=== PATIENT | female | born 1990 | race Caucasian/White ===

== ENCOUNTER 2018-06-27 21:26 | Inpatient (IN) | payer OTHER ==
[2018-06-27] MEDS ORDERED: SODIUM CHLORIDE 0.9% 1,000 ML IV STA (22:34)
[2018-06-27 22:46] LABS: Basophils % (A) 0 %; Eosinophils # (A) 0.1 k/uL (0-0.7); Eosinophils % (A) 1 %; HCT 38.7 % (34.0-46.0); HGB 12.1 gm/dL (11.4-16.0); Lymphocytes # (A) 1.9 k/uL (1.0-4.8); Lymphocytes % (A) 14 %; MCH 20.5 pg (25.0-35.0); MCHC 31.4 g/dL (31.0-37.0); MCV 65.4 fL (80.0-100.0); Mean Platelet Volume 7.2; Microcytosis Marked; Monocytes # (A) 0.7 k/uL (0-1.0); Monocytes % (A) 5 %; Neutrophils # (A) 10.3 k/uL (1.3-7.7); Neutrophils % (A) 79 %; Platelet Count 270 k/uL (150-450); RBC 5.91 m/uL (3.80-5.40); RDW 14.5 % (11.5-15.5); WBC 13.1 k/uL (3.8-10.6)
[2018-06-27 22:54] LABS: Appearance,Urine Cloudy (Clear); Bilirubin,Urine Negative (Negative); Blood,Urine Small (Negative); Color,Urine Yellow; Glucose,Urine (UA) Negative (Negative); Ketones,Urine Negative (Negative); Leukocyte Esterase,Urine Moderate (Negative); Mucus,Urine Occasional /hpf; Nitrite,Urine Negative (Negative); PH, Urine 6.5 (5.0-8.0); Protein,Urine 1+ (Negative); RBC,Urine 4 /hpf (0-5); Specific Gravity,Urine 1.027 (1.001-1.035); Squamous Epithelial Cell,Urine 13 /hpf (0-4); WBC,Urine 16 /hpf (0-5)
[2018-06-27 22:55] LABS: ALT 35 U/L (9-52); AST 67 U/L (14-36); Albumin 4.6 g/dL (3.5-5.0); Alkaline Phosphatase 101 U/L (38-126); Anion Gap 9 mmol/L; Blood Urea Nitrogen 8 mg/dL (7-17); Calcium 9.9 mg/dL (8.4-10.2); Carbon Dioxide 25 mmol/L (22-30); Chloride 107 mmol/L (98-107); Glucose 103 mg/dL (74-99); Lipase 444 U/L (23-300); Sodium 141 mmol/L (137-145); Total Bilirubin 1.3 mg/dL (0.2-1.3); Total Protein 7.7 g/dL (6.3-8.2)
--- NOTE | 2018-06-27 23:24 | CT ---
EXAM: CT Abdomen and Pelvis With Intravenous Contrast CLINICAL HISTORY: ITS.REASON CT Reason: abdominal pain TECHNIQUE: Axial computed tomography images of the abdomen and pelvis with intravenous contrast. This CT exam was performed using one or more of the following dose reduction techniques: automated exposure control, adjustment of the mA and/or kV according to patient size, and/or use of iterative reconstruction technique. COMPARISON: No relevant prior studies available. FINDINGS: Lung bases: Unremarkable. No mass. No consolidation. ABDOMEN: Liver: Unremarkable. No mass. Gallbladder and bile ducts: Cholelithiasis. 5 mm stone at the distal CBD. CBD is dilated, up to 1 cm. Pancreas: Unremarkable. No mass. No ductal dilation. Spleen: Unremarkable. No splenomegaly. Adrenals: Unremarkable. No mass. Kidneys and ureters: Unremarkable. No solid mass. No hydronephrosis. Stomach and bowel: No obstruction. No mucosal thickening. PELVIS: Appendix: No findings to suggest acute appendicitis. Bladder: Unremarkable. No mass. Reproductive: Unremarkable as visualized. ABDOMEN and PELVIS: Intraperitoneal space: Unremarkable. No free air. No significant fluid collection. Bones/joints: No acute fracture. No dislocation. Soft tissues: Unremarkable. Vasculature: No abdominal aortic aneurysm. Lymph nodes: Unremarkable. No enlarged lymph nodes. IMPRESSION: Cholelithiasis. 5 mm stone at the distal CBD. CBD is dilated, up to 1 cm.
--- NOTE | 2018-06-27 23:43 | ED ---
General Adult HPI - General Source: patient, RN notes reviewed, old records reviewed Mode of arrival: ambulatory Limitations: no limitations <Jv Jo - Last Filed: 06/28/18 03:39> <Cordelia Neumann - Last Filed: 06/28/18 06:06> - General Chief complaint: Abdominal Pain Stated complaint: Abd pain Time Seen by Provider: 06/27/18 22:15 - History of Present Illness Initial comments: 27-year-old female patient with no pertinent past medical history presents to ED for approximately 2 months of waxing and waning epigastric left upper quadrant abdominal pain. Patient has been evaluated by her primary care provider for this and has been placed on Protonix. Patient also has GI consult at the end of month. Patient reports that earlier today she began having epigastric pain, decided to present to the emergency department for evaluation. Patient denies any other complaints at this time. Pt states that she is not . Systemic: Pt denies fatigue, myalgia, fever/chills, rash. Pt denies weakness, night sweats, weight loss. Neuro: Pt denies headache, visual disturbances, syncope or pre-syncope. HEENT: Pt denies ocular discharge or irritation, otalgia, rhinorrhea, pharyngitis or notable lymphadenopathy. Cardiopulmonary: Pt denies chest pain, SOB, heart palpitations, dyspnea on exertion. Abdominal/GI: Pt denies abdominal pain, n/v/d. : Pt denies dysuria, burning w/ urination, frequency/urgency. Denies new onset urinary or bowel incontinence. MSK: Pt denies myalgia, loss of strength or function in extremities. Neuro: Pt denies new onset weakness, paresthesias. (Jv Jo) - Related Data Home Medications Medication Instructions Recorded Confirmed Xru-Dabm-Btimt Acid 1 tab PO DAILY 02/07/15 02/13/15 [-U Capsule (formulary)] Allergies Allergy/AdvReac Type Severity Reaction Status Date / Time amoxicillin AdvReac Rash/Hives Verified 06/27/18 21:58 Review of Systems ROS Other: All systems not noted in ROS Statement are negative. <Jv Jo - Last Filed: 06/28/18 03:39> ROS Other: All systems not noted in ROS Statement are negative. <Cordelia Neumann - Last Filed: 06/28/18 06:06> ROS Statement: Those systems with pertinent positive or pertinent negative responses have been documented in the HPI. Past Medical History Additional Past Medical History / Comment(s): kidney stones History of Any Multi-Drug Resistant Organisms: None Reported Past Surgical History: Adenoidectomy, Tonsillectomy Past Psychological History: No Psychological Hx Reported Smoking Status: Never smoker Past Alcohol Use History: Occasional Past Drug Use History: None Reported <Jv Jo - Last Filed: 06/28/18 03:39> General Exam Limitations: no limitations <Jv Jo - Last Filed: 06/28/18 03:39> - General Exam Comments Initial Comments: Constitutional: NAD, AOX3, Pt has pleasant affect. HEENT: NC/AT, trachea midline, neck supple, no lymphadenopathy. Posterior pharynx non erythematous, without exudates. External ears appear normal, without discharge. Mucous membranes moist. Eyes PERRLA, EOM intact. There is no scleral icterus. No pallor noted. Cardiopulmonary: RRR, no murmurs, rubs or gallops, no JVD noted. Lungs CTAB in anterior and posterior hayes. No peripheral edema. Abdominal exam: Abdomen soft and non-distended. Abdomen mildly tender to palpation in epigastric region. Mir sign negative. No other areas of abdominal tenderness. No guarding or rigidity. Bowel sounds active in LLQ. No hepatosplenomegaly. No ecchymosis Neuro: CN II-XII grossly intact. No nuchal rigidity. MSK: No posterior calf tenderness bilaterally, homans sign negative bilaterally. Posterior tibialis and radial pulse +2 bilaterally. Sensation intact in upper and lower extremities. Full active ROM in upper and lower extremities, 5/5 stregnth. (Jv Jo) Course Vital Signs 06/27/18 06/28/18 21:58 01:39 Temperature 98.5 F Pulse Rate 89 63 Respiratory 16 18 Rate Blood Pressure 111/75 106/75 O2 Sat by Pulse 98 99 Oximetry Medical Decision Making - Lab Data Result diagrams: 06/27/18 22:10 06/27/18 22:10 <Jv Jo - Last Filed: 06/28/18 03:39> - Lab Data Result diagrams: 06/27/18 22:10 06/27/18 22:10 <Cordelia Neumann - Last Filed: 06/28/18 06:06> - Medical Decision Making 27-year-old female patient with no pertinent past medical history presents to ED for approximately 2 months of waxing and waning epigastric left upper quadrant abdominal pain. Patient has been evaluated by her primary care provider for this and has been placed on Protonix. Patient also has GI consult at the end of month. Patient reports that earlier today she began having epigastric pain, decided to present to the emergency department for evaluation. Patient denies any other complaints at this time. Pt states that she is not . Patient vital signs stable, afebrile. Physical exma displayed: Abdomen soft and non- distended. Abdomen mildly tender to palpation in epigastric region. Mir sign negative. No other areas of abdominal tenderness. No guarding or rigidity. Laboratory investigation revealed mild leukocytosis of 13.1. CMP non-impressive. Lactic acid 1.1. Lipase elevated 444. UA contaminated will be cultured. CT and pelvis display cholelithiasis, 5 mm stone at distal common bile duct., common bile duct is dilated up to 1 cm. Gallbladder display cholelithiasis. Common bile duct dilated at 8 mm. Patient is likely experiencing gallstone pancreatitis. Cannot exclude acute cholecystitis. Patient started on IV antibiotics and be admitted for surgery consultation. Case discussed and pt seen by Dr. Neumann. (Jv Jo) I personally saw and evaluated the patient. Patient was presenting with abdominal pain, labs suggestive of early pancreatitis with elevated AST and lipase, imaging suggestive of common bile duct stone. Patient care was discussed with Dr. Szymanski gastroenterology who agrees with plan for nothing by mouth status admission and IV fluids antibiotics plan for intervention later in the morning. (Cordelia Neumann) - Lab Data Lab Results 06/27/18 06/27/18 06/27/18 Range/Units 22:10 22:10 22:40 WBC 13.1 H (3.8-10.6) k/uL RBC 5.91 H (3.80-5.40) m/uL Hgb 12.1 (11.4-16.0) gm/dL Hct 38.7 (34.0-46.0) % MCV 65.4 L (80.0-100.0) fL MCH 20.5 L (25.0-35.0) pg MCHC 31.4 (31.0-37.0) g/dL RDW 14.5 (11.5-15.5) % Plt Count 270 (150-450) k/uL Neutrophils % 79 % Lymphocytes % 14 % Monocytes % 5 % Eosinophils % 1 % Basophils % 0 % Neutrophils # 10.3 H (1.3-7.7) k/uL Lymphocytes # 1.9 (1.0-4.8) k/uL Monocytes # 0.7 (0-1.0) k/uL Eosinophils # 0.1 (0-0.7) k/uL Basophils # 0.0 (0-0.2) k/uL Microcytosis Marked Sodium 141 (137-145) mmol/L Potassium 4.0 (3.5-5.1) mmol/L Chloride 107 (98-107) mmol/L Carbon Dioxide 25 (22-30) mmol/L Anion Gap 9 mmol/L BUN 8 (7-17) mg/dL Creatinine 0.64 (0.52-1.04) mg/dL Est GFR (CKD-EPI)AfAm >90 (>60 ml/min/1.73 sqM) Est GFR (CKD-EPI)NonAf >90 (>60 ml/min/1.73 sqM) Glucose 103 H (74-99) mg/dL Plasma Lactic Acid Barry (0.7-2.0) mmol/L Calcium 9.9 (8.4-10.2) mg/dL Total Bilirubin 1.3 (0.2-1.3) mg/dL AST 67 H (14-36) U/L ALT 35 (9-52) U/L Alkaline Phosphatase 101 (38-126) U/L Total Protein 7.7 (6.3-8.2) g/dL Albumin 4.6 (3.5-5.0) g/dL Lipase 444 H (23-300) U/L Urine Color Urine Appearance (Clear) Urine pH (5.0-8.0) Ur Specific [place] (1.001-1.035) Urine Protein (Negative) Urine Glucose (UA) (Negative) Urine Ketones (Negative) Urine Blood (Negative) Urine Nitrite (Negative) Urine Bilirubin (Negative) Urine Urobilinogen (<2.0) mg/dL Ur Leukocyte Esterase (Negative) Urine RBC (0-5) /hpf Urine WBC (0-5) /hpf Ur Squamous Epith Cells (0-4) /hpf Urine Mucus (None) /hpf Urine HCG, Qual Not Detected (Not Detectd) 06/27/18 06/27/18 Range/Units 22:40 22:40 WBC (3.8-10.6) k/uL RBC (3.80-5.40) m/uL Hgb (11.4-16.0) gm/dL Hct (34.0-46.0) % MCV (80.0-100.0) fL MCH (25.0-35.0) pg MCHC (31.0-37.0) g/dL RDW (11.5-15.5) % Plt Count (150-450) k/uL Neutrophils % % Lymphocytes % % Monocytes % % Eosinophils % % Basophils % % Neutrophils # (1.3-7.7) k/uL Lymphocytes # (1.0-4.8) k/uL Monocytes # (0-1.0) k/uL Eosinophils # (0-0.7) k/uL Basophils # (0-0.2) k/uL Microcytosis Sodium (137-145) mmol/L Potassium (3.5-5.1) mmol/L Chloride (98-107) mmol/L Carbon Dioxide (22-30) mmol/L Anion Gap mmol/L BUN (7-17) mg/dL Creatinine (0.52-1.04) mg/dL Est GFR (CKD-EPI)AfAm (>60 ml/min/1.73 sqM) Est GFR (CKD-EPI)NonAf (>60 ml/min/1.73 sqM) Glucose (74-99) mg/dL Plasma Lactic Acid Barry 1.1 (0.7-2.0) mmol/L Calcium (8.4-10.2) mg/dL Total Bilirubin (0.2-1.3) mg/dL AST (14-36) U/L ALT (9-52) U/L Alkaline Phosphatase (38-126) U/L Total Protein (6.3-8.2) g/dL Albumin (3.5-5.0) g/dL Lipase (23-300) U/L Urine Color Yellow Urine Appearance Cloudy H (Clear) Urine pH 6.5 (5.0-8.0) Ur Specific [place] 1.027 (1.001-1.035) Urine Protein 1+ H (Negative) Urine Glucose (UA) Negative (Negative) Urine Ketones Negative (Negative) Urine Blood Small H (Negative) Urine Nitrite Negative (Negative) Urine Bilirubin Negative (Negative) Urine Urobilinogen 2.0 (<2.0) mg/dL Ur Leukocyte Esterase Moderate H (Negative) Urine RBC 4 (0-5) /hpf Urine WBC 16 H (0-5) /hpf Ur Squamous Epith Cells 13 H (0-4) /hpf Urine Mucus Occasional H (None) /hpf Urine HCG, Qual (Not Detectd) Disposition Is patient prescribed a controlled substance at d/c from ED?: No <Jv Jo - Last Filed: 06/28/18 03:39> <Cordelia Neumann - Last Filed: 06/28/18 06:06> Clinical Impression: Pancreatitis Disposition: ADMITTED IP TO THIS HOSP Condition: Serious
--- NOTE | 2018-06-28 01:09 | US ---
EXAM: US Abdomen Limited, Right Upper Quadrant CLINICAL HISTORY: ITS.REASON US Reason: Pain TECHNIQUE: Real-time ultrasound of the right upper quadrant with image documentation. COMPARISON: CT from [facility] FINDINGS: Liver: Unremarkable. No mass. No intrahepatic bile duct dilation. Gallbladder: Cholelithiasis with gallbladder wall thickening at 5 mm. Mir sign was positive. No free fluid. Common bile duct: Dilated CBD at 8 mm. No stones. Pancreas: Unremarkable as visualized. Right kidney: Unremarkable. No stones. No solid mass. No hydronephrosis. IMPRESSION: 1. Cholelithiasis. Cannot exclude acute cholecystitis. Correlate with nuclear imaging. 2. Dilated CBD at 8 mm.
[2018-06-28] MEDS ORDERED: metroNIDAZOLE-NS PMX 500 MG in SALINE 1 100ML.BAG IVPB STA ×2 (02:56→02:59)
[2018-06-28] MEDS ORDERED: NALOXONE 0.4 MG/ML 1 ML VIAL IV PRN (03:01)
[2018-06-28] MEDS: SODIUM CHLORIDE 0.9% 1,000 ML IV SCH ×3 (03:33→11:09)
[2018-06-28] MEDS: PANTOPRAZOLE 40 MG/10 ML VIAL IV SCH (07:10)
[2018-06-28] MEDS: MORPHINE SULFATE 4 MG/ML SYRINGE IV PRN ×2 (07:29→18:13)
[2018-06-28 09:36] LABS: Basophils % (A) 1 %; Eosinophils # (A) 0.1 k/uL (0-0.7); Eosinophils % (A) 1 %; HCT 34.9 % (34.0-46.0); HGB 11.2 gm/dL (11.4-16.0); Hypochromasia Moderate; Lymphocytes # (A) 1.7 k/uL (1.0-4.8); Lymphocytes % (A) 21 %; MCH 21.6 pg (25.0-35.0); MCHC 32.1 g/dL (31.0-37.0); MCV 67.2 fL (80.0-100.0); Mean Platelet Volume 6.9; Microcytosis Marked; Monocytes # (A) 0.4 k/uL (0-1.0); Monocytes % (A) 5 %; Neutrophils # (A) 5.8 k/uL (1.3-7.7); Neutrophils % (A) 73 %; Platelet Count 184 k/uL (150-450); RBC 5.19 m/uL (3.80-5.40); RDW 14.9 % (11.5-15.5)
[2018-06-28 09:55] LABS: ALT 151 U/L (9-52); AST 171 U/L (14-36); Alkaline Phosphatase 118 U/L (38-126); Amylase 93 U/L (30-110); Anion Gap 7 mmol/L; Blood Urea Nitrogen 5 mg/dL (7-17); Calcium 9.1 mg/dL (8.4-10.2); Carbon Dioxide 21 mmol/L (22-30); Chloride 113 mmol/L (98-107); Glucose 88 mg/dL (74-99); Lipase 307 U/L (23-300); Potassium 3.8 mmol/L (3.5-5.1); Sodium 141 mmol/L (137-145); Total Bilirubin 1.9 mg/dL (0.2-1.3); Total Protein 6.9 g/dL (6.3-8.2)
[2018-06-28] MEDS: metroNIDAZOLE-NS PMX 500 MG in SALINE 1 100ML.BAG IVPB SCH ×2 (11:08→21:16)
--- NOTE | 2018-06-28 11:35 | P.GSCN ---
History of Present Illness Consult date: 06/28/18 Reason for Consult: Acute cholecystitis Requesting physician: Cordelia Neumann History of present illness: CHIEF COMPLAINT: Abdominal pain HISTORY OF PRESENT ILLNESS: 27-year-old female who presented to the emergency room with a chief complaint of epigastric pain. Patient reports she has had this pain intermittently for a few months. She states the pain was so severe yesterday she came to the emergency room for further evaluation. She reports nausea but denied episodes of vomiting. Denies diarrhea or constipation. Denies fever or chills. PAST MEDICAL HISTORY: See list. PAST SURGICAL HISTORY: See list. SOCIAL HISTORY: No illicit drug use. REVIEW OF SYSTEMS: CONSTITUTIONAL: Denies fever or chills. HEENT: Denies blurred vision, vision changes, or eye pain. Denies hemoptysis CARDIOVASCULAR: Denies chest pain or pressure. RESPIRATORY: No shortness of breath. GASTROINTESTINAL: Refer to HPI for pertinent findings HEMATOLOGIC: Denies bleeding disorders. GENITOURINARY: Denies any blood in urine. SKIN: Denies pruitis. Denies rash. PHYSICAL EXAM: VITAL SIGNS: Reviewed. GENERAL: Well-developed in no acute distress. HEENT: No sclera icterus. Extraocular movements grossly intact. Moist buccal m [place]. Head is atraumatic, normocephalic. ABDOMEN: Soft. Nondistended. Mild epigastric tenderness. NEUROLOGIC: Alert and oriented. Cranial nerves II through XII grossly intact. LABORATORY DATA: Labs on admission: WBC 13.1. Hemoglobin 12.1. Bilirubin 1.3. AST 67. ALT 35. Lipase 444. Repeat labs this morning: WBC 8.0. Hemoglobin 11.1. Bilirubin 1.9. AST 171. ALT 151. Lipase 307. IMAGIN. Abdominal ultrasound: Cholelithiasis with gallbladder wall thickening measuring 5 mm. Positive sonographic Mir sign. No free fluid. Dilated comm on bile duct measuring [address] abdomen and pelvis: Cholelithiasis. 5 mm stone at the distal common bile duct. CBD dilated up to 1 cm. ASSESSMENT: 1. Abdominal pain 2. Acute cholecystitis 3. Choledocholithiasis 4. Hyperbilirubinemia 5. Transaminitis 6. Elevated lipase PLAN: NPO. Continue IV fluids. Continue antibiotics. Cholecystectomy when stable. Await GI evaluation and recommendations. Nurse practitioner note has been reviewed by physician. Signing provider agrees with the documented findings, assessment, and plan of care. Past Medical History Additional Past Medical History / Comment(s): kidney stones History of Any Multi-Drug Resistant Organisms: None Reported Past Surgical History: Adenoidectomy, Tonsillectomy Past Psychological History: No Psychological Hx Reported Smoking Status: Never smoker Past Alcohol Use History: Occasional Past Drug Use History: None Reported Medications and Allergies Home Medications Medication Instructions Recorded Confirmed Type Calcium Carbonate [Tums] 500 mg PO TID PRN 06/28/18 06/28/18 History Norethindrone 1/0.02mg 1 tab PO DAILY 06/28/18 06/28/18 History Pantoprazole Sodium [Protonix] 20 mg PO DAILY 06/28/18 06/28/18 History Allergies Allergy/AdvReac Type Severity Reaction Status Date / Time amoxicillin AdvReac Rash/Hives Verified 06/28/18 08:19 Surgical - Exam Vital Signs Temp Pulse Resp BP Pulse Ox 98.5 F 89 16 111/75 98 06/27/18 21:58 06/27/18 21:58 06/27/18 21:58 06/27/18 21:58 06/27/18 21:58 Results - Labs 06/28/18 09:12 06/28/18 09:12 Abnormal Lab Results - Last 24 Hours (Table) 06/27/18 06/27/18 06/27/18 Range/Units 22:10 22:10 22:40 WBC 13.1 H (3.8-10.6) k/uL RBC 5.91 H (3.80-5.40) m/uL Hgb (11.4-16.0) gm/dL MCV 65.4 L (80.0-100.0) fL MCH 20.5 L (25.0-35.0) pg Neutrophils # 10.3 H (1.3-7.7) k/uL Chloride (98-107) mmol/L Carbon Dioxide (22-30) mmol/L BUN (7-17) mg/dL Glucose 103 H (74-99) mg/dL Total Bilirubin (0.2-1.3) mg/dL AST 67 H (14-36) U/L ALT (9-52) U/L Lipase 444 H (23-300) U/L Urine Appearance Cloudy H (Clear) Urine Protein 1+ H (Negative) Urine Blood Small H (Negative) Ur Leukocyte Esterase Moderate H (Negative) Urine WBC 16 H (0-5) /hpf Ur Squamous Epith Cells 13 H (0-4) /hpf Urine Mucus Occasional H (None) /hpf 06/28/18 06/28/18 Range/Units 09:12 09:12 WBC (3.8-10.6) k/uL RBC (3.80-5.40) m/uL Hgb 11.2 L (11.4-16.0) gm/dL MCV 67.2 L (80.0-100.0) fL MCH 21.6 L (25.0-35.0) pg Neutrophils # (1.3-7.7) k/uL Chloride 113 H (98-107) mmol/L Carbon Dioxide 21 L (22-30) mmol/L BUN 5 L (7-17) mg/dL Glucose (74-99) mg/dL Total Bilirubin 1.9 H (0.2-1.3) mg/dL AST 171 H (14-36) U/L ALT 151 H (9-52) U/L Lipase 307 H (23-300) U/L Urine Appearance (Clear) Urine Protein (Negative) Urine Blood (Negative) Ur Leukocyte Esterase (Negative) Urine WBC (0-5) /hpf Ur Squamous Epith Cells (0-4) /hpf Urine Mucus (None) /hpf Microbiology - Last 24 Hours (Table) 06/27/18 22:40 Urine Culture - Preliminary Urine,Clean Catch Diabetes panel 06/27/18 06/28/18 Range/Units 22:10 09:12 Sodium 141 141 (137-145) mmol/L Potassium 4.0 3.8 (3.5-5.1) mmol/L Chloride 107 113 H (98-107) mmol/L Carbon Dioxide 25 21 L (22-30) mmol/L BUN 8 5 L (7-17) mg/dL Creatinine 0.64 0.64 (0.52-1.04) mg/dL Glucose 103 H 88 (74-99) mg/dL Calcium 9.9 9.1 (8.4-10.2) mg/dL AST 67 H 171 H (14-36) U/L ALT 35 151 H (9-52) U/L Alkaline Phosphatase 101 118 (38-126) U/L Total Protein 7.7 6.9 (6.3-8.2) g/dL Albumin 4.6 4.0 (3.5-5.0) g/dL Calcium panel 06/27/18 06/28/18 Range/Units 22:10 09:12 Calcium 9.9 9.1 (8.4-10.2) mg/dL Albumin 4.6 4.0 (3.5-5.0) g/dL Pituitary panel 06/27/18 06/28/18 Range/Units 22:10 09:12 Sodium 141 141 (137-145) mmol/L Potassium 4.0 3.8 (3.5-5.1) mmol/L Chloride 107 113 H (98-107) mmol/L Carbon Dioxide 25 21 L (22-30) mmol/L BUN 8 5 L (7-17) mg/dL Creatinine 0.64 0.64 (0.52-1.04) mg/dL Glucose 103 H 88 (74-99) mg/dL Calcium 9.9 9.1 (8.4-10.2) mg/dL Adrenal panel 06/27/18 06/28/18 Range/Units 22:10 09:12 Sodium 141 141 (137-145) mmol/L Potassium 4.0 3.8 (3.5-5.1) mmol/L Chloride 107 113 H (98-107) mmol/L Carbon Dioxide 25 21 L (22-30) mmol/L BUN 8 5 L (7-17) mg/dL Creatinine 0.64 0.64 (0.52-1.04) mg/dL Glucose 103 H 88 (74-99) mg/dL Calcium 9.9 9.1 (8.4-10.2) mg/dL Total Bilirubin 1.3 1.9 H (0.2-1.3) mg/dL AST 67 H 171 H (14-36) U/L ALT 35 151 H (9-52) U/L Alkaline Phosphatase 101 118 (38-126) U/L Total Protein 7.7 6.9 (6.3-8.2) g/dL Albumin 4.6 4.0 (3.5-5.0) g/dL
[2018-06-28] MEDS ORDERED: INDOMETHACIN 50MG SUPPOSITORY RECTAL ONE (14:30)
--- NOTE | 2018-06-28 15:24 | P.CONS ---
History of Present Illness - Reason for Consult Consult date: 06/28/18 Choledocholithiasis Requesting physician: Richardson Owens - Chief Complaint Abdominal pain - History of Present Illness 19-year-old female who presented to the hospital with complaints of pain. She reports a 2 month history of abdominal pain occurring intermittently. She re ports that the pain would wax and wane and was in the left upper quadrant of her abdomen. She was started on Protonix therapy as an outpatient and scheduled to follow up with gastroenterology in the outpatient setting. However the pain intensified and the patient presented to the hospital for further evaluation. The patient reports nausea without vomiting and darkening of her urine prior to presentation. On presentation to the emergency department the patient was found to have a WBC 8, hemoglobin 11.2, with a count 184,000, lipase 307, and elevation in her liver enzymes with subsequently trended up to a total bilirubin of 1.9, alkaline phosphatase 118, AST 171 and ALT 161. The patient had evaluation with imaging with computed tomography scan of the abdomen showing cholelithiasis, a 1 cm common bile duct and a 5 mm stone in the distal common bile duct. The patient also had ultrasound of investigation which showed cholelithiasis and a dilated common bile duct. Review of Systems REVIEW OF SYSTEMS: CONSTITUTIONAL: Denies any fevers, chills, weight change or fatigue. CARDIOVASCULAR: Denies any chest pain, palpitations high or low blood pressures RESPIRATORY: Denies any shortness of breath, hemoptysis or cough. GENITOURINARY: No dysuria or hematuria, but did report dark urine. MUSCULOSKELETAL: No weakness reported. SKIN: Denies any new rashes or lesions, jaundice or pallor. PSYCHIATRIC: Denies any depression or anxiety. NEUROLOGY: Denies headache, denies any new focal deficits. EARS/NOSE/THROAT: No recent hearing change, congestion, nasal discharge or sore throat. EYES: No pain in eyes, discharge or change in vision. GASTROINTESTINAL: As per HPI. Past Medical History Additional Past Medical History / Comment(s): kidney stones History of Any Multi-Drug Resistant Organisms: None Reported Past Surgical History: Adenoidectomy, Tonsillectomy Past Psychological History: No Psychological Hx Reported Smoking Status: Never smoker Past Alcohol Use History: Occasional Past Drug Use History: None Reported Medications and Allergies Home Medications Medication Instructions Recorded Confirmed Type Calcium Carbonate [Tums] 500 mg PO TID PRN 06/28/18 06/28/18 History Norethindrone 1/0.02mg 1 tab PO DAILY 06/28/18 06/28/18 History Pantoprazole Sodium [Protonix] 20 mg PO DAILY 06/28/18 06/28/18 History Allergies Allergy/AdvReac Type Severity Reaction Status Date / Time amoxicillin AdvReac Rash/Hives Verified 06/28/18 08:19 Physical Exam Vitals: Vital Signs Temp Pulse Pulse Resp BP BP Pulse Ox 06/28/18 05:00 98.3 F 74 18 108/70 97 06/28/18 01:39 63 18 106/75 99 06/27/18 21:58 98.5 F 89 16 111/75 98 Intake and Output 06/27/18 06/28/18 06/28/18 22:59 06:59 14:59 Other: Voiding Method Toilet # Voids 2 Weight 68.039 kg On physical examination, patient appears comfortable in no apparent distress. HEAD: Normocephalic, atraumatic. EYES: No scleral icterus. No conjunctival injection. MOUTH: No lesions, tongue midline. NECK: Trachea midline, no gross abnormalities. CHEST: Clear to auscultation with no wheezing or rhonchi appreciated. HEART: Regular rate and rhythm. ABDOMEN: Soft, obese. Bowel sounds are positive. No organomegaly. No guarding or rigidity. EXTREMITIES: No pedal edema. SKIN: No rashes, no jaundice. NEUROLOGIC: Alert and oriented x3. No focal deficits. Results CBC & Chem 7: 06/28/18 09:12 06/28/18 09:12 Labs: Abnormal Lab Results - Last 24 Hours (Table) 06/27/18 06/27/18 06/27/18 Range/Units 22:10 22:10 22:40 WBC 13.1 H (3.8-10.6) k/uL RBC 5.91 H (3.80-5.40) m/uL Hgb (11.4-16.0) gm/dL MCV 65.4 L (80.0-100.0) fL MCH 20.5 L (25.0-35.0) pg Neutrophils # 10.3 H (1.3-7.7) k/uL Chloride (98-107) mmol/L Carbon Dioxide (22-30) mmol/L BUN (7-17) mg/dL Glucose 103 H (74-99) mg/dL Total Bilirubin (0.2-1.3) mg/dL AST 67 H (14-36) U/L ALT (9-52) U/L Lipase 444 H (23-300) U/L Urine Appearance Cloudy H (Clear) Urine Protein 1+ H (Negative) Urine Blood Small H (Negative) Ur Leukocyte Esterase Moderate H (Negative) Urine WBC 16 H (0-5) /hpf Ur Squamous Epith Cells 13 H (0-4) /hpf Urine Mucus Occasional H (None) /hpf 06/28/18 06/28/18 Range/Units 09:12 09:12 WBC (3.8-10.6) k/uL RBC (3.80-5.40) m/uL Hgb 11.2 L (11.4-16.0) gm/dL MCV 67.2 L (80.0-100.0) fL MCH 21.6 L (25.0-35.0) pg Neutrophils # (1.3-7.7) k/uL Chloride 113 H (98-107) mmol/L Carbon Dioxide 21 L (22-30) mmol/L BUN 5 L (7-17) mg/dL Glucose (74-99) mg/dL Total Bilirubin 1.9 H (0.2-1.3) mg/dL AST 171 H (14-36) U/L ALT 151 H (9-52) U/L Lipase 307 H (23-300) U/L Urine Appearance (Clear) Urine Protein (Negative) Urine Blood (Negative) Ur Leukocyte Esterase (Negative) Urine WBC (0-5) /hpf Ur Squamous Epith Cells (0-4) /hpf Urine Mucus (None) /hpf Microbiology - Last 24 Hours (Table) 06/27/18 22:40 Urine Culture - Preliminary Urine,Clean Catch CT scan - abdomen: report reviewed (computed tomography scan of the abdomen showing cholelithiasis, a 1 cm common bile duct and a 5 mm stone in the distal common bile duct) Assessment and Plan (1) Choledocholithiasis Narrative/Plan: Patient presenting with complaints of intermittent abdominal pain and findings of elevation in liver enzymes on presentation to the hospital. Computed tomography scan of the abdomen was significant for cholelithiasis with a distal common bile duct stone noted. Current Visit: Yes Status: Acute Code(s): K80.50 - CALCULUS OF BILE DUCT W/O CHOLANGITIS OR CHOLECYST W/O OBST SNOMED Code(s): 442145332 (2) Elevated liver enzymes Current Visit: Yes Status: Acute Code(s): R74.8 - ABNORMAL LEVELS OF OTHER SERUM ENZYMES SNOMED Code(s): 325379415 (3) Gallstones Current Visit: Yes Status: Acute Code(s): K80.20 - CALCULUS OF GALLBLADDER W/O CHOLECYSTITIS W/O OBSTRUCTION SNOMED Code(s): 072479090 Plan: Supportive care Nothing by mouth Antibiotics were ordered Indocin preprocedure ordered Plan for ERCP in the setting of choledocholithiasis Extensive conversation with the patient and her parents on the risks, side effects and benefits of planned ERCP with all of their questions answered to their satisfaction Continue to monitor liver enzymes Appreciate surgical recommendations Thank you for allowing us to participate in the care of the patient we will continue to follow
[2018-06-28] MEDS ORDERED: PROPOFOL 10 MG/ML 20 ML VIAL IV ONE (15:29)
[2018-06-28] MEDS ORDERED: MIDAZOLAM 2 MG/2 ML VIAL ONE (15:29)
[2018-06-28] MEDS ORDERED: fentaNYL (PF) 50 MCG/ML 2 ML AMP ONE (15:29)
[2018-06-28] MEDS ORDERED: SUCCINYLCHOLINE CHLORIDE 100 MG/5 ML SYR IV ONE (15:29)
[2018-06-28] MEDS ORDERED: LIDOCAINE 1% INJ 10MG/ML (20 ML MDV) ONE (15:29)
[2018-06-28] MEDS ORDERED: IV FLUID CONTINUATION 1,000 ML IV ONE (15:30)
--- NOTE | 2018-06-28 16:24 | P.HPIM ---
History of Present Illness Patient is a pleasant 27-year-old female came into the emergency department with epigastric pain sharp in nature to have gallstones cholelithiasis, choledocholithiasis. Patient has minimally elevated the lipase not high enough to say pancreatitis but has symptomology is consistent with pancreatitis patient was having nausea. Review of Systems REVIEW OF SYSTEMS: CONSTITUTIONAL: No fever, no malaise, no fatigue. HEENT: No recent visual problems or hearing problems. Denied any sore throat. CARDIOVASCULAR: No chest pain, orthopnea, PND, no palpitations, no syncope. PULMONARY: No shortness of breath, no cough, no hemoptysis. GASTROINTESTINAL: As mentioned in HPI NEUROLOGICAL: No headaches, no weakness, no numbness. HEMATOLOGICAL: Denies any bleeding or petechiae. GENITOURINARY: Denies any burning micturition, frequency, or urgency. MUSCULOSKELETAL/RHEUMATOLOGICAL: Denies any joint pain, swelling, or any muscle pain. ENDOCRINE: Denies any polyuria or polydipsia. The rest of the 14-point review of systems is negative. Past Medical History Additional Past Medical History / Comment(s): kidney stones History of Any Multi-Drug Resistant Organisms: None Reported Past Surgical History: Adenoidectomy, Tonsillectomy Past Psychological History: No Psychological Hx Reported Smoking Status: Never smoker Past Alcohol Use History: Occasional Past Drug Use History: None Reported Medications and Allergies Home Medications Medication Instructions Recorded Confirmed Type Calcium Carbonate [Tums] 500 mg PO TID PRN 06/28/18 06/28/18 History Norethindrone 1/0.02mg 1 tab PO DAILY 06/28/18 06/28/18 History Pantoprazole Sodium [Protonix] 20 mg PO DAILY 06/28/18 06/28/18 History Allergies Allergy/AdvReac Type Severity Reaction Status Date / Time amoxicillin AdvReac Rash/Hives Verified 06/28/18 08:19 Physical Exam Vitals: Vital Signs Temp Pulse Pulse Resp BP BP Pulse Ox 06/28/18 14:45 98.4 F 83 16 102/67 99 06/28/18 05:00 98.3 F 74 18 108/70 97 06/28/18 01:39 63 18 106/75 99 06/27/18 21:58 98.5 F 89 16 111/75 98 Intake and Output 06/28/18 06/28/18 06/28/18 06:59 14:59 22:59 Other: Voiding Method Toilet Toilet # Voids 2 PHYSICAL EXAMINATION: GENERAL: The patient is alert and oriented x3, not in any acute distress. Well developed, well nourished. HEENT: Pupils are round and equally reacting to light. EOMI. No scleral icterus. No conjunctival pallor. Normocephalic, atraumatic. No pharyngeal erythema. No thyromegaly. CARDIOVASCULAR: S1 and S2 present. No murmurs, rubs, or gallops. PULMONARY: Chest is clear to auscultation, no wheezing or crackles. ABDOMEN: Soft, minimal epigastric abdominal tenderness nondistended, normoactive bowel sounds. No palpable organomegaly. MUSCULOSKELETAL: No joint swelling or deformity. EXTREMITIES: No cyanosis, clubbing, or pedal edema. NEUROLOGICAL: Gross neurological examination did not reveal any focal deficits. SKIN: No rashes. Results CBC & Chem 7: 06/28/18 09:12 06/28/18 09:12 Labs: Abnormal Lab Results - Last 24 Hours (Table) 06/27/18 06/27/18 06/27/18 Range/Units 22:10 22:10 22:40 WBC 13.1 H (3.8-10.6) k/uL RBC 5.91 H (3.80-5.40) m/uL Hgb (11.4-16.0) gm/dL MCV 65.4 L (80.0-100.0) fL MCH 20.5 L (25.0-35.0) pg Neutrophils # 10.3 H (1.3-7.7) k/uL Chloride (98-107) mmol/L Carbon Dioxide (22-30) mmol/L BUN (7-17) mg/dL Glucose 103 H (74-99) mg/dL Total Bilirubin (0.2-1.3) mg/dL AST 67 H (14-36) U/L ALT (9-52) U/L Lipase 444 H (23-300) U/L Urine Appearance Cloudy H (Clear) Urine Protein 1+ H (Negative) Urine Blood Small H (Negative) Ur Leukocyte Esterase Moderate H (Negative) Urine WBC 16 H (0-5) /hpf Ur Squamous Epith Cells 13 H (0-4) /hpf Urine Mucus Occasional H (None) /hpf 06/28/18 06/28/18 Range/Units 09:12 09:12 WBC (3.8-10.6) k/uL RBC (3.80-5.40) m/uL Hgb 11.2 L (11.4-16.0) gm/dL MCV 67.2 L (80.0-100.0) fL MCH 21.6 L (25.0-35.0) pg Neutrophils # (1.3-7.7) k/uL Chloride 113 H (98-107) mmol/L Carbon Dioxide 21 L (22-30) mmol/L BUN 5 L (7-17) mg/dL Glucose (74-99) mg/dL Total Bilirubin 1.9 H (0.2-1.3) mg/dL AST 171 H (14-36) U/L ALT 151 H (9-52) U/L Lipase 307 H (23-300) U/L Urine Appearance (Clear) Urine Protein (Negative) Urine Blood (Negative) Ur Leukocyte Esterase (Negative) Urine WBC (0-5) /hpf Ur Squamous Epith Cells (0-4) /hpf Urine Mucus (None) /hpf Microbiology - Last 24 Hours (Table) 06/27/18 22:40 Urine Culture - Preliminary Urine,Clean Catch Thrombosis Risk Factor Assmnt - Choose All That Apply Any of the Below Risk Factors Present?: Yes Each Factor Represents 1 point: Obesity (BMI >25) Thrombosis Risk Factor Assessment Total Risk Factor Score: 1 Thrombosis Risk Factor Assessment Level: Low Risk Assessment and Plan Plan: -Cholelithiasis and choledocholithiasis the elevated liver enzymes: Patient will undergo ERCP followed by cholecystectomy -Mildly elevated pancreatic enzymes due to passage of gallstone nontender to say pancreatitis -Elevated liver enzymes due to to choledocholithiasis expected to improve with the ERCP Leukocytosis may be reactive but patient was started on antibiotics for possible ascending cholangitis. Asymptomatic bacteriuria no evidence of UTI
[2018-06-28] MEDS ORDERED: IOPAMIDOL-300 50ML BTL MISCELLANE ONE (16:36)
--- NOTE | 2018-06-28 16:52 | P.PCN ---
Date of Procedure: 06/28/18 Description of Procedure: Brief history: 27-year-old female who presented to the hospital with complaints of pain. She reports a 2 month history of abdominal pain occurring intermittently. She reports that the pain would wax and wane and was in the left upper quadrant of her abdomen. She was started on Protonix therapy as an outpatient and scheduled to follow up with gastroenterology in the outpatient setting. However the pain intensified and the patient presented to the hospital for further evaluation. The patient reports nausea without vomiting and darkening of her urine prior to presentation. On presentation to the emergency department the patient was found to have a WBC 8, hemoglobin 11.2, with a count 184,000, lipase 307, and elevation in her liver enzymes with subsequently trended up to a total bilirubin of 1.9, alkaline phosphatase 118, AST 171 and ALT 161. The patient had evaluation with imaging with computed tomography scan of the abdomen showing cholelithiasis, a 1 cm common bile duct and a 5 mm stone in the distal common bile duct. The patient also had ultrasound of investigation which showed cholelithiasis and a dilated common bile duct. Procedure performed: ERCP with cholangiogram, sphincterotomy and balloon sweep Preoperative diagnoses: Choledocholithiasis, abnormal CT imaging, elevated liver enzymes, abdominal pain IV sedation per anesthesia: Estimated blood loss: Minimal. Procedure: After informed consent was obtained from the patient and after the risks benefits and complications including bleeding perforation and pancreatitis explained in detail the patient was brought into the endoscopy unit. The patient was placed in prone position and IV conscious sedation was administered by anesthesia under continuous monitoring. The Olympus side-viewing duodenoscope was then inserted into the mouth and esophagus intubated without any difficulty. The scope was gradually advanced into the stomach and duodenum. The major papilla was identified without any difficulty. A sphincterotome was used for cannulation with a wire passed into the common bile duct, through the common hepatic duct into the bifurcation. Cholangiogram was then performed with findings of a diffusely dilated CBD measuring approximately 11 millimeters, with some filling defects noted suggestive of possible stones versus air from manipulation. An 11 mm sphincterotomy was then performed. The sphincterotome was then removed and a balloon passed over the wire into the common bile duct, through the common hepatic duct into the bifurcation. Multiple passes were performed with the balloon inflated to 8.5 mm and then serially to 11.5 mm. Good bile flow was noted and some sludge was removed from the duct. The pancreatic duct was not cannulated or injected. The patient tolerated the procedure well. Impression: 1. ERCP with cholangiogram, sphincterotomy and balloon sweep 2. CBD sludge, with no stones noted during balloon sweep of the bile duct Recommendations: The findings of this examination were discussed with the patient as well as a family. Okay for liquid diet, advance as tolerated. Continue to monitor liver enzymes. Continue to monitor for signs or symptoms of pancreatitis. Follow up with surgical service for recommendations regarding cholecystectomy.
[2018-06-28] MEDS: ONDANSETRON 4 MG/2 ML VIAL IVP PRN (17:40)
[2018-06-29] MEDS: SODIUM CHLORIDE 0.9% 1,000 ML IV SCH ×4 (00:43→19:22)
[2018-06-29] MEDS: metroNIDAZOLE-NS PMX 500 MG in SALINE 1 100ML.BAG IVPB SCH ×3 (04:19→19:21)
[2018-06-29] MEDS: PANTOPRAZOLE 40 MG/10 ML VIAL IV SCH (07:27)
[2018-06-29] MEDS: MORPHINE SULFATE 4 MG/ML SYRINGE IV PRN ×4 (08:06→19:21)
[2018-06-29 10:20] LABS: Basophils % (A) 0 %; Eosinophils # (A) 0.1 k/uL (0-0.7); Eosinophils % (A) 2 %; HCT 33.9 % (34.0-46.0); HGB 10.3 gm/dL (11.4-16.0); Hypochromasia Moderate; Lymphocytes % (A) 26 %; MCH 20.6 pg (25.0-35.0); MCHC 30.5 g/dL (31.0-37.0); MCV 67.7 fL (80.0-100.0); Mean Platelet Volume 6.8; Microcytosis Marked; Monocytes # (A) 0.3 k/uL (0-1.0); Monocytes % (A) 5 %; Neutrophils % (A) 67 %; Platelet Count 185 k/uL (150-450); RBC 5.01 m/uL (3.80-5.40); RDW 14.8 % (11.5-15.5); WBC 7.5 k/uL (3.8-10.6)
[2018-06-29 10:39] LABS: ALT 98 U/L (9-52); AST 56 U/L (14-36); Albumin 3.5 g/dL (3.5-5.0); Alkaline Phosphatase 101 U/L (38-126); Anion Gap 5 mmol/L; Blood Urea Nitrogen 3 mg/dL (7-17); Calcium 8.7 mg/dL (8.4-10.2); Carbon Dioxide 25 mmol/L (22-30); Chloride 111 mmol/L (98-107); Glucose 81 mg/dL (74-99); Lipase 258 U/L (23-300); Sodium 141 mmol/L (137-145); Total Bilirubin 1.1 mg/dL (0.2-1.3); Total Protein 6.2 g/dL (6.3-8.2)
--- NOTE | 2018-06-29 10:52 | FL ---
Fluoroscopy HISTORY: Common bile duct stone 62 seconds fluoroscopy time supplied to the referring clinician. 3 intraoperative C-arm images docum ent the procedure. See dictated report from gastroenterology.
--- NOTE | 2018-06-29 11:49 | P.PN ---
Subjective Progress Note Date: 06/29/18 CHIEF COMPLAINT: Abdominal pain HISTORY OF PRESENT ILLNESS: Patient examined at the bedside. She underwent ERCP yesterday. Pain is tolerable this morning. Bilirubin 1.1. AST 56. ALT 98. Lipase 258. PHYSICAL EXAM: VITAL SIGNS: Reviewed. GENERAL: Well-developed in no acute distress. HEENT: No sclera icterus. Extraocular movements grossly intact. Moist buccal mucosa. Head is atraumatic, normocephalic. ABDOMEN: Soft. Nondistended. Mild epigastric tenderness. NEUROLOGIC: Alert and oriented. Cranial nerves II through XII grossly intact. ASSESSMENT: 1. Abdominal pain 2. Acute cholecystitis 3. Choledocholithiasis 4. Hyperbilirubinemia 5. Transaminitis 6. Elevated lipase PLAN: Full liquid diet today. Nothing by mouth after midnight. Patient to undergo laparoscopic cholecystectomy tomorrow. Nurse practitioner note has been reviewed by physician. Signing provider agrees with the documented findings, assessment, and plan of care. Objective - Vital Signs Vital signs: Vital Signs Temp 98.4 F 06/29/18 05:10 Pulse 89 06/29/18 05:10 Resp 18 06/29/18 05:10 BP 106/67 06/29/18 05:10 Pulse Ox 98 06/29/18 05:10 Intake & Output 06/28/18 06/29/18 06/29/18 18:59 06:59 18:59 Intake Total 320 300 Balance 320 300 Intake: IV 320 Oral 300 Other: Voiding Method Toilet Toilet # Voids 2 1 3 - Labs CBC & Chem 7: 06/29/18 09:45 06/29/18 09:45 Labs: Abnormal Lab Results - Last 24 Hours (Table) 06/29/18 06/29/18 Range/Units 09:45 09:45 Hgb 10.3 L (11.4-16.0) gm/dL Hct 33.9 L (34.0-46.0) % MCV 67.7 L (80.0-100.0) fL MCH 20.6 L (25.0-35.0) pg MCHC 30.5 L (31.0-37.0) g/dL Chloride 111 H (98-107) mmol/L BUN 3 L (7-17) mg/dL AST 56 H (14-36) U/L ALT 98 H (9-52) U/L Total Protein 6.2 L (6.3-8.2) g/dL Microbiology - Last 24 Hours (Table) 06/27/18 22:40 Urine Culture - Final Urine,Clean Catch
--- NOTE | 2018-06-29 16:40 | P.PN ---
Subjective 79-year-old female admitted for cholelithiasis possible cholecystitis and choledocholithiasis area at patient underwent ERCP was no stone present in the common bile duct she may have passed a stone patient will undergo cholecystectomy today patient is pain-free at this time doing well at this time. Constitutional: Denied any fatigue denied any fever. Cardio vascular: denied any chest pain, palpitations Gastrointestinal denied any nausea vomiting Pulmonary: Denied any shortness of breath cough Neurologic denied any new focal deficits All inpatient medications were reviewed and appropriate changes in these medications as dictated in the interval history and assessment and plan. Objective - Vital Signs Vital signs: Vital Signs Temp 98.4 F 06/29/18 14:19 Pulse 71 06/29/18 14:19 Resp 16 06/29/18 14:19 BP 102/68 06/29/18 14: Pulse Ox 100 06/29/18 14:19 Intake & Output 06/28/18 06/29/18 06/29/18 18:59 06:59 18:59 Intake Total 320 300 Balance 320 300 Intake: IV 320 Oral 300 Other: Voiding Method Toilet Toilet # Voids 2 1 3 - Exam PHYSICAL EXAMINATION: GENERAL: The patient is alert and oriented x3, not in any acute distress. Well developed, well nourished. HEENT: Pupils are round and equally reacting to light. EOMI. No scleral icterus. No conjunctival pallor. Normocephalic, atraumatic. No pharyngeal erythema. No thyromegaly. CARDIOVASCULAR: S1 and S2 present. No murmurs, rubs, or gallops. PULMONARY: Chest is clear to auscultation, no wheezing or crackles. ABDOMEN: Soft, nontender, nondistended, normoactive bowel sounds. No palpable organomegaly. MUSCULOSKELETAL: No joint swelling or deformity. EXTREMITIES: No cyanosis, clubbing, or pedal edema. NEUROLOGICAL: Gross neurological examination did not reveal any focal deficits. SKIN: No rashes. - Labs CBC & Chem 7: 06/29/18 09:45 06/29/18 09:45 Labs: Abnormal Lab Results - Last 24 Hours (Table) 06/29/18 06/29/18 Range/Units 09:45 09:45 Hgb 10.3 L (11.4-16.0) gm/dL Hct 33.9 L (34.0-46.0) % MCV 67.7 L (80.0-100.0) fL MCH 20.6 L (25.0-35.0) pg MCHC 30.5 L (31.0-37.0) g/dL Chloride 111 H (98-107) mmol/L BUN 3 L (7-17) mg/dL AST 56 H (14-36) U/L ALT 98 H (9-52) U/L Total Protein 6.2 L (6.3-8.2) g/dL Microbiology - Last 24 Hours (Table) 06/27/18 22:40 Urine Culture - Final Urine,Clean Catch Assessment and Plan Plan: -Cholelithiasis, cholecystitis and choledocholithiasis the elevated liver enzymes: And had ERCP yesterday and cholecystectomy day -Mildly elevated pancreatic enzymes due to passage of gallstone nontender and lipase is not high enough to say pancreatitis -Elevated liver enzymes due to to choledocholithiasis improved now and due to past gallstone Leukocytosis may be reactive but patient was started on antibiotics for possible cystitis Asymptomatic bacteriuria no evidence of UTI
[2018-06-29] MEDS ORDERED: MORPHINE SULFATE 4 MG/ML SYRINGE ONE (23:35)
[2018-06-30] MEDS ORDERED: MORPHINE SULFATE 4 MG/ML SYRINGE ONE (04:45)
[2018-06-30] MEDS: metroNIDAZOLE-NS PMX 500 MG in SALINE 1 100ML.BAG IVPB SCH ×2 (05:30→11:08)
[2018-06-30] MEDS: SODIUM CHLORIDE 0.9% 1,000 ML IV SCH ×3 (05:30→15:30)
[2018-06-30 08:12] LABS: Glucose,Whole Blood 93 mg/dL (75-99)
[2018-06-30] MEDS: ONDANSETRON 4 MG/2 ML VIAL IVP PRN (08:14)
[2018-06-30] MEDS: PANTOPRAZOLE 40 MG/10 ML VIAL IV SCH (08:15)
[2018-06-30] MEDS: MORPHINE SULFATE 4 MG/ML SYRINGE IV PRN (11:03)
[2018-06-30] MEDS ORDERED: SCOPOLAMINE 1.5MG/72HR PATCH TRANSDERM ONE (12:10)
[2018-06-30] MEDS ORDERED: LACTATED RINGERS 1,000 ML IV ONE (12:10)
[2018-06-30] MEDS ORDERED: DEXAMETHASONE SOD PHOS (MDV) 100 MG/10 ML VIAL IVP ONE (12:10)
[2018-06-30] MEDS ORDERED: HEPARIN SODIUM,PORCINE 5,000 UNIT/ML 1 ML VIAL SQ ONE (13:05)
[2018-06-30] MEDS ORDERED: BUPIVACAIN-EPI 0.5%-1:200,000 30 ML VIAL SQ ONE (13:42)
--- NOTE | 2018-06-30 14:18 | P.OP ---
Date of Procedure: 06/30/18 Preoperative Diagnosis: Cholecystitis Postoperative Diagnosis: Cholecystitis Procedure(s) Performed: Laparoscopic cholecystectomy Anesthesia: FRENCH Surgeon: Mario Carranza Estimated Blood Loss (ml): 5 Pathology: other (Gallbladder) Condition: stable Disposition: PACU Description of Procedure: The patient was placed on the operating table. The patient received a general endotracheal tube anesthesia. The patients abdomen was prepped and draped in the usual sterile fashion. Through an infraumbilical stab incision, the fascia of the anterior abdominal wall was grasped with a pair of Kochers and then the Veress needle was placed in the peritoneal cavity. Position of the Veress needle was confirmed with positive drop test. The abdomen was then insufflated. After adequate insufflation, the 10 mm trocar was placed in the peritoneal cavity. Following this the laparoscope was placed in the peritoneal cavity. The patient was placed in the head-up, right side up position and then a 5 mm trocar was placed in the right lateral and right subcostal position under direct visualization. A 8 mm trocar was placed in the epigastric position. The gallbladder was grasped in the fundus and infundibulum. Traction on the gallbladder was placed in the lateral and the cephalad positions. The triangle of Calot was visualized.. The cystic duct was bluntly dissected until the union of the cystic duct and common bile duct was seen. A critical view of safety was achieved. The cystic duct was then divided and sealed with the Harmonic scissors. A PDS Endoloop was then placed throughout the cystic duct stump. The cystic artery divided and sealed with the Harmonic scissors. The gallbladder was then removed from the liver bed using Harmonic scissors. The gallbladder was then extracted through the epigastric port site. Operative field was checked for any bleeding spots and Harmonic scissors was used to coagulate the liver bed. The abdomen was irrigated. The trocars were removed. The skin was closed using interrupted 3-0 Vicryl suture. Dermabond dressing were applied. The patient tolerated the procedure well.
[2018-06-30 14:32] VITALS: RESP 16
--- NOTE | 2018-06-30 14:37 | P.DS ---
Providers Date of admission: 06/28/18 03:02 Attending physician: Richardson Owens Consults: 06/28/18 03:03 Consult Physician Urgent Consulting Provider: Mario Carranza Consult Reason/Comments: possible acute cayla Do you want consulting provider notified?: Yes Primary care physician: Glynn Ezequiel [facility] Course: 79-year-old female admitted for cholelithiasis possible cholecystitis and choledocholithiasis area at patient underwent ERCP was no stone present in the common bile duct she may have passed a stone patient will undergo cholecystectomy today patient is pain-free at this time doing well at this time. 06/30/2018 Patient will undergo laparoscopic cholecystectomy after that if cleared by general surgery patient will be discharged today. PHYSICAL EXAMINATION: GENERAL: The patient is alert and oriented x3, not in any acute distress. Well developed, well nourished. HEENT: Pupils are round and equally reacting to light. EOMI. No scleral icterus. No conjunctival pallor. Normocephalic, atraumatic. No pharyngeal erythema. No thyromegaly. CARDIOVASCULAR: S1 and S2 present. No murmurs, rubs, or gallops. PULMONARY: Chest is clear to auscultation, no wheezing or crackles. ABDOMEN: Soft, nontender, nondistended, normoactive bowel sounds. No palpable organomegaly. MUSCULOSKELETAL: No joint swelling or deformity. EXTREMITIES: No cyanosis, clubbing, or pedal edema. NEUROLOGICAL: Gross neurological examination did not reveal any focal deficits. SKIN: No rashes. Assessment and Plan Plan: -Cholelithiasis, cholecystitis and choledocholithiasis the elevated liver enzymes: And had ERCP couple days ago and cholecystectomy today liver enzymes improved -Mildly elevated pancreatic enzymes due to passage of gallstone nontender and lipase is not high enough to say pancreatitis -Elevated liver enzymes due to to choledocholithiasis improved now and due to past gallstone Leukocytosis may be reactive but patient was started on antibiotics for possible cholecystitis Asymptomatic bacteriuria no evidence of UTI Patient Condition at Discharge: Serious Plan - Discharge Summary New Discharge Prescriptions: New HYDROcodone/APAP 7.5-325MG [[place] 7.5-325] 1 tab PO Q6HR PRN 3 Days #10 tab PRN Reason: Pain No Action Pantoprazole Sodium [Protonix] 20 mg PO DAILY Calcium Carbonate [Tums] 500 mg PO TID PRN PRN Reason: Heartburn Norethindrone 1/0.02mg 1 tab PO DAILY Discharge Medication List Calcium Carbonate [Tums] 500 mg PO TID PRN 06/28/18 [History] Norethindrone 1/0.02mg 1 tab PO DAILY 06/28/18 [History] Pantoprazole Sodium [Protonix] 20 mg PO DAILY 06/28/18 [History] HYDROcodone/APAP 7.5-325MG [[place] [place] 7.5-325] 1 tab PO Q6HR PRN 3 Days #10 tab 06/30/18 [Rx] Follow up Appointment(s)/Referral(s): Glynn Nieves MD [Primary Care Provider] - 07/05/18 11:30 am Mario Carranza MD [STAFF PHYSICIAN] - 1 Week Discharge Disposition: HOME SELF-CARE
[2018-06-30] MEDS ORDERED: SODIUM CHLORIDE 0.9% 1,000 ML IV ONE ×2 (14:46)
[2018-06-30 15:00] VITALS: BP 112/53; PULSE 101; TEMP 98.1
== END 2018-06-30 17:09 | disposition home or self-care (01) | DRG 417 ==
LOC: EC 21:26 → 4MS4W 06-28 03:02
PROVIDERS: ADMIT Hospitalist; ATTEND Hospitalist
PROC: BF131ZZ Fluoroscopy of Gallbladder and Bile Ducts using Low Osmolar Contrast (ICD-10-PCS; 2018-06-28)
PROC: 0F798ZZ Dilation of Common Bile Duct, Via Natural or Artificial Opening Endoscopic (ICD-10-PCS; 2018-06-28)
PROC: 0FT44ZZ Resection of Gallbladder, Percutaneous Endoscopic Approach (ICD-10-PCS; principal; 2018-06-30 15:45)
DX: K80.42 Calculus of bile duct with acute cholecystitis without obstruction (principal); K85.10 Biliary acute pancreatitis without necrosis or infection; Z79.899 Other long term (current) drug therapy; Z87.442 Personal history of urinary calculi; E80.6 Other disorders of bilirubin metabolism; R74.0 Nonspecific elevation of levels of transaminase and lactic acid dehydrogenase [LDH]; Z88.0 Allergy status to penicillin
CPT/HCPCS: 36415; 43262; 74177; 74330; 76705; 80053; 81001; 81025; 82150; 83605; 83690; 85025; 87086; 88304

== ENCOUNTER 2021-12-11 14:46 | Outpatient (CLI) | payer OTHER ==
[2021-12-11 16:34] VITALS: BP 109/62; PULSE 81; RESP 16; TEMP 97
--- NOTE | 2021-12-19 07:22 | P.MSEPDOC ---
Presenting Problems - Arrival Data Date of Arrival on Unit: 12/11/21 Time of Arrival on Unit: 14:54 Mode of Transport: Ambulatory - Complaint OB-Reason for Admission/Chief Complaint: Other Comment: pt arrived c/o jerzy contractions and decreased movement Medical History - Information : 3 Para: 2 Term: 2 : 0 Abortions: Spontaneous or Elective: 0 Number of Living Children: 2 - Gestational Age Gestational Age by IGGY (wks/days): 27 Weeks and 3 Days Review of Systems - Review of Systems Constitutional: No problems Breast: No problems ENT: No problems Cardiovascular: No problems Respiratory: No problems Gastrointestinal: No problems Genitourinary: No problems Musculoskeletal: No problems Neurological: No problems Skin: No problems Vital Signs - Temperature Temperature: 97 F Temperature Source: Oral - Pulse Right Brachial Pulse Rate: 81 Pulse Assessment Method: Automatic Cuff - Respirations Respiratory Rate: 16 Oxygen Delivery Method: Room Air O2 Sat by Pulse Oximetry: 100 - Blood Pressure Right Arm Blood Pressure: 109/62 Blood Pressure Mean: 77 Blood Pressure Source: Automatic Cuff Medical Screen Scoring - Cervical Exam Dilation (cm): 0 Effacement (%): 60 Station: -2 Membranes: Intact - Uterine Contractions Frequency From (mins): 0 Frequency To (mins): 0 - Assessment - Baby A Baseline FHR: 140 Heart Rate - NICHD Category: Category I (Normal) NST: Reactive Physician Notification - Physician Notified Physician Notified Date: 12/11/21 Physician Notified Time: 16:16 Physician: Dr Atkinson New Order Received: Yes - Notification Comment Comment: may discharge to home with instructions and have pt keep her next scheduled appointment with Dr Chau next 12/19/2021 Maternal Triage Index - Non-Urgent/Priority 4 Non-Urgent Priority 4: Yes Criteria Met for Priority 4: 27 3/7 weeks edc 03/09/2022 c/o jerzy contractions and decreased movement. abd soft v/s stable reactive NST FFN obtained . sve ft external and closed internal and long with no blood noted.no contractions noted abd remains soft. dr atkinson called with report. doesnt feel the need to send the FFN at this time Disposition - Disposition OB Disposition: Physician follow up in office, Discharge to home Discharge Date: 12/11/21 Discharge Time: 16:18 I agree with the RN Medical Screening Exam: Yes Case reviewed; plan agreed upon as documented in EMR&OBIX.: Yes Diagnosis: DECREASED MOVEMENTS, SECOND TRIMESTER, FETUS 1
== END 2021-12-11 16:18 | disposition home or self-care (01) ==
LOC: FBPOP 14:46
PROVIDERS: ATTEND Obstetrics & Gynecology
DX: O36.8130 Decreased fetal movements, third trimester, not applicable or unspecified (principal); O62.4 Hypertonic, incoordinate, and prolonged uterine contractions; Z88.1 Allergy status to other antibiotic agents
CPT/HCPCS: 59025; G0463; 99213

== ENCOUNTER 2022-03-08 23:07 | Inpatient (IN) | payer OTHER ==
--- NOTE | 2022-03-09 00:18 | US ---
EXAMINATION TYPE: US OB BPP wo non-stress DATE OF EXAM: 03/09/2022 COMPARISON: NONE CLINICAL HISTORY: decreased movement. IGGY 03/09/2022 TECHNIQUE: Transabdominal (TA). Scoring by the bed setter during real-time assessment. FINDINGS: BPP PARAMETERS: PRESENTATION: Vertex LIE: Longitudinal?? HEART RATE: 136 bpm RHYTHM: Normal MARILEE: 18.0cm DIAPHRAGM IMAGED: Yes BPP SCORIN. Breathin (1 episode of breathing of 30 second duration in 30 minutes of scanning time) 2. Movement: 2 (at least 3 discrete body movements in 30 minutes) 3. Tone: 2 (1 episode of active flexion/extension of limb) 4. MARILEE: 2 (MARILEE index > 5cm) IMPRESSION: TOTAL SCORE: 8 / 8 Normal exam. No complicating process seen.
[2022-03-09] MEDS ORDERED: TERBUTALINE 1 MG/ML VIAL SQ PRN (01:42)
[2022-03-09] MEDS ORDERED: LIDOCAINE 0.5% (PF) 5 MG/ML (50 ML SDV) SQ PRN (01:42)
[2022-03-09 01:54] LABS: Basophils % (A) 0 %; Eosinophils # (A) 0.2 k/uL (0-0.7); Eosinophils % (A) 1 %; HCT 30.4 % (34.0-46.0); HGB 9.7 gm/dL (11.4-16.0); Hypochromasia Slight; Lymphocytes # (A) 1.4 k/uL (1.0-4.8); Lymphocytes % (A) 10 %; MCH 20.8 pg (25.0-35.0); MCHC 31.9 g/dL (31.0-37.0); MCV 65.2 fL (80.0-100.0); Mean Platelet Volume 7.2; Microcytosis Marked; Monocytes # (A) 0.8 k/uL (0-1.0); Monocytes % (A) 6 %; Neutrophils # (A) 11.7 k/uL (1.3-7.7); Neutrophils % (A) 83 %; Platelet Count 165 k/uL (150-450); Poikilocytosis Slight; RBC 4.67 m/uL (3.80-5.40); RDW 14.8 % (11.5-15.5); WBC 14.1 k/uL (3.8-10.6)
[2022-03-09] MEDS: LACTATED RINGERS 1,000 ML IV SCH ×3 (01:56→03:52)
[2022-03-09] MEDS ORDERED: fentaNYL (PF) 50 MCG/ML 5 ML AMP ONE (02:35)
[2022-03-09] MEDS ORDERED: SODIUM CHLORIDE 0.9% 100 ML BAG ONE (02:35)
[2022-03-09] MEDS ORDERED: ROPIVACAINE 5 MG/ML 20 ML AMPULE ONE (02:35)
[2022-03-09] MEDS ORDERED: OXYTOCIN 30 UNITS/500 ML NS 30 UNIT in SALINE 1 500ML.BAG IV SCH ×2 (05:00→13:00)
--- NOTE | 2022-03-09 10:04 | P.HPOB ---
History of Present Illness H&P Date: 03/09/22 Chief Complaint: Contractions, decreased movement Ms. Brand is a 31 year old at 40 weeks with EDC of 03/09/2021 who presents to labor and delivery with decreased movement and painful contractions. NST is reactive and BPP is 8/8. Contractions were becoming closer together and more painful during her stay in triage. Her cervical exam changed from 3cm dilation to 4cm dilation. She was admitted for labor. Obstetric History: 2 FTVD without complications, largest baby 7 pounds. Last vaginal delivery was 7 years ago. This was complicated by high normal MARILEE of 24. Laboratory Workup: Blood type is O negative, antibody screen is negative. She is s/p rhogam at 28 weeks, rubella immune, VDRL non-reactive, HBsAG negative, HIV negative. 1 hour GTT 141. 3 hour GTT 83 (F), 148 (1h), 143 (2h), 80 (3h). Group B Strep negative. Past Medical History Additional Past Medical History / Comment(s): kidney stones, History of Any Multi-Drug Resistant Organisms: None Reported Past Surgical History: Adenoidectomy, Cholecystectomy, Tonsillectomy Past Anesthesia/Blood Transfusion Reactions: No Reported Reaction Past Psychological History: No Psychological Hx Reported Smoking Status: Never smoker Past Alcohol Use History: None Reported Past Drug Use History: None Reported Medications and Allergies Home Medications Medication Instructions Recorded Confirmed Type Aspirin [Children's Aspirin] 81 mg PO DAILY 12/11/21 03/08/22 History Omeprazole 20 mg PO DAILY 12/11/21 03/08/22 History Vit No.179/Iron/Folic 1 each PO DAILY 12/11/21 03/08/22 History [ Tablet] Allergies Allergy/AdvReac Type Severity Reaction Status Date / Time amoxicillin AdvReac Rash/Hives Verified 03/08/22 23:26 Exam Vital Signs Temp Pulse Resp BP Pulse Ox 03/09/22 01:42 98.4 F 109 H 16 120/77 03/08/22 23:25 136 H 18 133/69 96 Intake and Output 03/08/22 03/09/22 03/09/22 22:59 06:59 14:59 Output Total 500 Balance -500 Output: Urine 500 Other: # Voids 1 Weight 88.904 kg Focused physical exam is performed. This is a healthy-appearing , breathing through contractions. Cervical dilation is 4/60/-3. AROM is undertaken for large amount of clear fluid. Results Result Diagrams: 03/09/22 01:43 Abnormal Lab Results - Last 24 Hours (Table) 03/09/22 Range/Units 01:43 WBC 14.1 H (3.8-10.6) k/uL Hgb 9.7 L (11.4-16.0) gm/dL Hct 30.4 L (34.0-46.0) % MCV 65.2 L (80.0-100.0) fL MCH 20.8 L (25.0-35.0) pg Neutrophils # 11.7 H (1.3-7.7) k/uL Assessment and Plan Assessment: 31 year old at 40 weeks gestation with EDC of 03/09/2022 by 1st trimester US who presents in labor and with decreased movement. Plan: Admit, NPO, mIVF, epidural prn, oxytocin augmentation. Continuous electronic monitoring and close monitoring of mother. Time with Patient: Greater than 30 (35 minutes)
[2022-03-09] MEDS ORDERED: BENZOCAINE/MENTHOL SPRAY 1 GM/SPRAY AEROSOL TOPICAL PRN (12:57)
[2022-03-09] MEDS ORDERED: HYDROCORTISONE 2.5% RECTAL CREAM 30 GM TUBE RECTAL PRN (12:57)
[2022-03-09] MEDS ORDERED: diphenhydrAMINE 50 MG/ML 1 ML VIAL IVP PRN ×2 (12:57)
[2022-03-09] MEDS ORDERED: LANOLIN CREAM 5 GM TUBE TOPICAL PRN (12:57)
[2022-03-09] MEDS ORDERED: diphenhydrAMINE 25 MG CAP PO PRN (12:57)
[2022-03-09] MEDS ORDERED: SIMETHICONE 80 MG CHEWABLE PO PRN (12:57)
[2022-03-09] MEDS ORDERED: diphenhydrAMINE 50 MG CAP PO PRN (12:57)
[2022-03-09] MEDS ORDERED: Rhogam IMMUNE GLOBULIN 1,500 UNIT/1 ML IM ONE (12:57)
[2022-03-09] MEDS ORDERED: ZOLPIDEM 5 MG TAB PO PRN (12:57)
--- NOTE | 2022-03-09 12:57 | P.PROBDLV ---
Vaginal Delivery Note - . Vaginal Delivery Note: DATE OF SERVICE: 03/09/2022 PROCEDURE: Normal Vaginal Delivery ATTENDING: Dr. Lucina Washington MD ESTIMATED BLOOD LOSS: 200 mL FINDINGS: VMI, Apgars 9/9, weight 7#11oz PROCEDURE: Patient was a 31 y/o at 40 weeks who presented to labor and delivery in labor. She was admitted and oxytocin augmentation was started. The patient received an epidural for analgesia. AROM was undertaken for clear fluid. The patient had recurrent variable decelerations with intermittent late decelerations. Internal monitors were placed and amnioinfusion was started. She quickly progressed to complete dilation. During pushing, the patient had deep variable decelerations. The head was quickly delivered in a compound presentation with left hand by the face. The head was followed by shoulders and body over intact perineum. placed on maternal abdomen and bulb suctioned. Cord was clamped and cut after a 30 second delay. Placenta delivered whole with gentle cord traction. Oxytocin was started to facilitate uterine tone. Uterine fundus firm and bleeding minimal upon fundal massage. Perineal inspection revealed a small first degree laceration that was repaired with 2-0 Vicryl in the usual fashion. A small periurethral abrasion was noted but it was hemostatic and did not require repair. Patient stable .
[2022-03-09] MEDS: ACETAMINOPHEN TAB 325 MG TAB PO PRN ×2 (14:21→21:59)
[2022-03-09] MEDS: SENNOSIDES-DOCUSATE SODIUM 1 EACH TAB PO SCH (19:41)
[2022-03-09] MEDS: IBUPROFEN 600 MG TAB PO PRN (19:41)
[2022-03-10] MEDS: IBUPROFEN 600 MG TAB PO PRN ×3 (00:35→18:51)
[2022-03-10] MEDS: ACETAMINOPHEN TAB 325 MG TAB PO PRN ×3 (07:14→20:57)
[2022-03-10] MEDS: SENNOSIDES-DOCUSATE SODIUM 1 EACH TAB PO SCH ×2 (07:40→20:56)
[2022-03-10 07:44] LABS: Basophils % (A) 0 %; Eosinophils # (A) 0.1 k/uL (0-0.7); Eosinophils % (A) 1 %; HCT 26.1 % (34.0-46.0); Hypochromasia Slight; Lymphocytes # (A) 1.2 k/uL (1.0-4.8); Lymphocytes % (A) 15 %; MCH 20.5 pg (25.0-35.0); MCHC 31.3 g/dL (31.0-37.0); MCV 65.6 fL (80.0-100.0); Mean Platelet Volume 8.6; Microcytosis Marked; Monocytes # (A) 0.6 k/uL (0-1.0); Monocytes % (A) 8 %; Neutrophils % (A) 75 %; Platelet Count 134 k/uL (150-450); Poikilocytosis Slight; RBC 3.98 m/uL (3.80-5.40)
[2022-03-10 07:52] LABS: HGB 8.2 gm/dL (11.4-16.0)
--- NOTE | 2022-03-10 08:44 | P.PNOBGVD ---
Subjective - Subjective Patient reports: Reports appetite normal, Reports voiding normally, Reports pain well controlled, Reports ambulating normally : doing well Objective - Latest Vital Signs Latest vital signs: Vital Signs Temp Pulse Resp BP Pulse Ox 03/10/22 07:44 97.7 F 100 18 118/86 98 03/10/22 00:40 98.4 F 87 16 101/66 97 03/09/22 20:00 99.3 F 115 H 16 124/83 97 03/09/22 15:30 98.3 F 105 H 18 128/68 99 03/09/22 15:00 98.3 F 105 H 18 117/77 03/09/22 14:30 98.9 F 96 18 119/73 03/09/22 14:00 100 119/80 03/09/22 13:45 98.2 F 107 H 18 116/83 03/09/22 13:30 98.3 F 99 18 121/70 03/09/22 13:15 100 16 121/75 03/09/22 13:00 99.1 F 109 H 14 149/74 Intake and Output 03/09/22 03/10/22 03/10/22 22:59 06:59 14:59 Output Total 200 Balance -200 Output: Output, Quantitative 200 Blood Loss Other: # Voids 1 2 - Exam Extremities: Present: normal Abdomen: Present: normal appearance, soft Uterus: Present: normal, firm - Labs Labs: Abnormal Lab Results - Last 24 Hours (Table) 03/10/22 Range/Units 07:02 Hgb 8.2 L D (11.4-16.0) gm/dL Hct 26.1 L (34.0-46.0) % MCV 65.6 L (80.0-100.0) fL MCH 20.5 L (25.0-35.0) pg Plt Count 134 L (150-450) k/uL Assessment and Plan (1) Normal spontaneous vaginal delivery Current Visit: No Status: Acute Code(s): O80 - ENCOUNTER FOR FULL-TERM UNCOMPLICATED DELIVERY SNOMED Code(s): 36318607 Plan: continue routine care. I would anticipate discharge home tomorrow pending no complications.
[2022-03-10 23:47] VITALS: RESP 16
[2022-03-11] MEDS: IBUPROFEN 600 MG TAB PO PRN (00:12)
[2022-03-11] MEDS: ACETAMINOPHEN TAB 325 MG TAB PO PRN ×2 (03:34→08:41)
[2022-03-11 08:28] VITALS: BP 108/73; PULSE 86; TEMP 97.9
[2022-03-11] MEDS: SENNOSIDES-DOCUSATE SODIUM 1 EACH TAB PO SCH (09:26)
--- NOTE | 2022-03-11 09:30 | P.DS ---
Providers Date of admission: 03/09/22 01:37 Expected date of discharge: 03/11/22 Attending physician: Lucina Washington MD Primary care physician: Stated None - Discharge Diagnosis(es) (1) Normal spontaneous vaginal delivery Current Visit: No Status: Acute Hospital Course: The patient is a 31-year-old 3 para 2 scissors or 2 admitted at 40-0/7 weeks by good dating parameters. She is admitted in early labor with all signs reassuring. Her has been essentially uncomplicated and group B strep status is negative. On labor and delivery, she was admitted and underwent artificial rupture of membranes. She did have some category 2 heart rate tracings leading to placement of internal monitors including an amnioinfusion. She then progressed very quickly to complete and pushed to a normal spontaneous vaginal delivery of a viable 7 lbs. 11 oz. baby boy with Apgars of 9 at 1 minute and 9 at 5 minutes. Her course was unremarkable with vital signs remaining stable and her temperature was afebrile throughout. She was deemed stable for discharge on day #2 which she elected to stay through as she has other children at home who are sick with influenza A. She was discharged home on day #2 and was discharged to follow-up in the office in 6 weeks' time routinely. Discharge instructions included calling for any significantly increased bleeding or foul-smelling lochia, significantly increased fever abdominal pain, perineal complaints, breast complaints, or anything else that concerned her. She is additionally instructed to have nothing in the vagina for at least 6 weeks time to include intercourse. She understood her instructions and agrees to follow up as noted above. Discharge medications included continued vitamins as she has opted to breast- feed. She was otherwise to use [id number] analgesic pain medications as needed. Maternal blood type is O- and cord blood was sent for evaluation for the necessity of RhoGAM prior to discharge. Rubella status is immune. Procedures: #1. Artificial rupture of membranes #2. Pitocin augmentation #3. Amnioinfusion #4. Normal spontaneous vaginal delivery #5. Repair of first- degree perineal laceration Patient Condition at Discharge: Stable Plan - Discharge Summary New Discharge Prescriptions: No Action Omeprazole 20 mg PO DAILY Vit No.179/Iron/Folic [ Tablet] 1 each PO DAILY Aspirin [Children's Aspirin] 81 mg PO DAILY Discharge Medication List Aspirin [Children's Aspirin] 81 mg PO DAILY 12/11/21 [History] Omeprazole 20 mg PO DAILY 12/11/21 [History] Vit No.179/Iron/Folic [ Tablet] 1 each PO DAILY 12/11/21 [History] Follow up Appointment(s)/Referral(s): Mariano Chau MD [STAFF PHYSICIAN] - 6 Weeks Discharge Disposition: HOME SELF-CARE
== END 2022-03-11 10:43 | disposition home or self-care (01) | DRG 807 ==
LOC: FBPOP 23:07 → 4FBP 03-09 01:37
PROVIDERS: ADMIT Obstetrics & Gynecology; ATTEND Obstetrics & Gynecology
PROC: 10E0XZZ Delivery of Products of Conception, External Approach (ICD-10-PCS; principal; 2022-03-09)
PROC: 10907ZC Drainage of Amniotic Fluid, Therapeutic from Products of Conception, Via Natural or Artificial Opening (ICD-10-PCS; 2022-03-09)
PROC: 0HQ9XZZ Repair Perineum Skin, External Approach (ICD-10-PCS; 2022-03-09)
PROC: 3E0334Z Introduction of Serum, Toxoid and Vaccine into Peripheral Vein, Percutaneous Approach (ICD-10-PCS; 2022-03-09)
DX: O36.8130 Decreased fetal movements, third trimester, not applicable or unspecified (principal); Z37.0 Single live birth; O32.6XX0 Maternal care for compound presentation, not applicable or unspecified; O76 Abnormality in fetal heart rate and rhythm complicating labor and delivery; O70.0 First degree perineal laceration during delivery; Z3A.40 40 weeks gestation of pregnancy; Z79.82 Long term (current) use of aspirin; Z88.0 Allergy status to penicillin; Z28.310 Unvaccinated for COVID-19
CPT/HCPCS: 59025; 76819; 85025; 85461; 86850; 86900; 86901; 99213

== ENCOUNTER 2023-02-12 02:04 | Inpatient (IN) | payer OTHER ==
[2023-02-12 02:43] LABS: Appearance,Urine Cloudy (Clear); Bacteria,Urine Many /hpf; Bilirubin,Urine Negative (Negative); Blood,Urine Trace (Negative); Color,Urine Colorless; Glucose,Urine (UA) Negative (Negative); Hyaline Casts,Urine 8 /lpf (0-2); Ketones,Urine Negative (Negative); Leukocyte Esterase,Urine Large (Negative); Nitrite,Urine Negative (Negative); PH, Urine 6.5 (5.0-8.0); Protein,Urine Negative (Negative); RBC,Urine 1 /hpf (0-5); Specific Gravity,Urine 1.004 (1.001-1.035); Urobilinogen,Urine <2.0 mg/dL (<2.0); WBC,Urine >182 /hpf (0-5)
[2023-02-12] MEDS: LACTATED RINGERS 1,000 ML IV SCH ×2 (03:42→11:57)
[2023-02-12] MEDS: ACETAMINOPHEN TAB 500 MG TAB PO PRN (03:45)
[2023-02-12 05:06] LABS: Basophils % (A) 0 %; Eosinophils # (A) 0.1 k/uL (0-0.7); Eosinophils % (A) 1 %; HCT 30.9 % (34.0-46.0); Hypochromasia Moderate; Lymphocytes # (A) 2.3 k/uL (1.0-4.8); Lymphocytes % (A) 15 %; MCH 21.7 pg (25.0-35.0); MCHC 32.2 g/dL (31.0-37.0); MCV 67.2 fL (80.0-100.0); Mean Platelet Volume 8.3; Microcytosis Marked; Monocytes # (A) 0.6 k/uL (0-1.0); Monocytes % (A) 4 %; Neutrophils # (A) 12.3 k/uL (1.3-7.7); Neutrophils % (A) 79 %; Platelet Count 223 k/uL (150-450); Poikilocytosis Slight; RDW 14.6 % (11.5-15.5); WBC 15.5 k/uL (3.8-10.6)
--- NOTE | 2023-02-12 05:46 | P.HPOB ---
History of Present Illness H&P Date: 02/12/23 Chief Complaint: Back pain Ms. Brand is a 32 year old at 36 weeks and 4 days with EDC of 03/07/2023 who presents to labor and delivery with flank pain, found to have py elonephritis. She is afebrile but does have leukocytosis of 15.5. The patient had a urinary tract infection on 12/17/2022 for which she took 5 days of Macrobid. She has also been feeling contractions regularly. Her cervix was checked and she was found to be dilated to 1/50/-2 which is stable from her cervical exam at 35 weeks. Otherwise, she is feeling good movement and denies leakage of fluid or vaginal bleeding. Past Medical History Additional Past Medical History / Comment(s): kidney stones, History of Any Multi-Drug Resistant Organisms: None Reported Past Surgical History: Adenoidectomy, Cholecystectomy, Tonsillectomy Past Anesthesia/Blood Transfusion Reactions: No Reported Reaction Past Psychological History: No Psychological Hx Reported Smoking Status: Never smoker Past Alcohol Use History: None Reported Past Drug Use History: None Reported Medications and Allergies Home Medications Medication Instructions Recorded Confirmed Type Omeprazole 20 mg PO DAILY 12/11/21 02/12/23 History Vit No.179/Iron/Folic 1 each PO DAILY 12/11/21 02/12/23 History [ Tablet] Magnesium 1 tab PO DAILY 02/12/23 02/12/23 History Allergies Allergy/AdvReac Type Severity Reaction Status Date / Time amoxicillin AdvReac Rash/Hives Verified 03/08/22 23:26 Exam Vital Signs Temp Pulse Resp BP Pulse Ox 02/12/23 03:23 97.9 F 88 16 108/73 98 02/12/23 02:07 98.1 F 93 16 117/73 98 Intake and Output 02/11/23 02/11/23 02/12/23 14:59 22:59 06:59 Other: Weight 87.09 kg Focused physical exam is performed. This is a healthy-appearing , sleeping upon initial encounter. Breathing is non-labored. Abdomen is gravid and non-tender. Right CVA tenderness appreciated. Extremities non-tender and non-edematous. heart tones on NST were reactive and reassuring, contractions every 5 minutes the patient states she was not feeling very much. Results Result Diagrams: 02/12/23 03:30 Abnormal Lab Results - Last 24 Hours (Table) 02/12/23 02/12/23 Range/Units 02:15 03:30 WBC 15.5 H (3.8-10.6) k/uL Hgb 10.0 L (11.4-16.0) gm/dL Hct 30.9 L (34.0-46.0) % MCV 67.2 L (80.0-100.0) fL MCH 21.7 L (25.0-35.0) pg Neutrophils # 12.3 H (1.3-7.7) k/uL Urine Appearance Cloudy H (Clear) Urine Blood Trace H (Negative) Ur Leukocyte Esterase Large H (Negative) Urine WBC >182 H (0-5) /hpf Urine Bacteria Many H (None) /hpf Hyaline Casts 8 H (0-2) /lpf Assessment and Plan Assessment: 32 year old at 36 weeks and 4 days with pyelonephritis Plan: 1. Pyelonephritis. Rocephin 1 gram qDay ordered. c/Infectious Disease. 2. 36 week gestation. NSTs qShift. Dispo: Appreciate recommendations from ID. Plan for transition to PO antibiotics after clinical improvement. Time with Patient: Less than 30
[2023-02-12] MEDS: MORPHINE SULFATE 4 MG/ML SYRINGE IVP PRN ×3 (07:44→18:12)
[2023-02-12] MEDS ORDERED: MORPHINE SULFATE 2 MG/ML SYRINGE IVP PRN (19:15)
--- NOTE | 2023-02-12 23:20 | P.CONS ---
History of Present Illness - Reason for Consult Consult date: 02/12/23 Pyelonephritis Requesting physician: Lucina Washington - Chief Complaint right flank pain x 1 day - History of Present Illness Patient is a 32-year-old female which is currently 36 weeks presenting to the hospital with right flank pain patient symptoms started the day before presentation to the hospital describing the pain to be more of a moderate in intensity sharp in nature did have some associated frequency of urine some burning but no hematuria patient did have some nausea but no vomiting no chest pain shortness of breath or cough with the symptoms the patient presented to hospital on arrival to the ER the patient was afebrile and no fever have recorded subsequently no significant tachycardia hypotension or hypoxemia patient did have white count of 15.5 with a left shift did have a positive UA which was cloudy large leukocyte esterase more than 1-2 WBC patient was started on Rocephin infectious disease was consulted for further management of antibiotic therapy patient did have a history of recurrent UTI during this last episode about a month ago that was treated with the Macrobid Review of Systems Positive point and negatives has been mentioned in the HPI, complete review of systems was performed and all other systems are negative Past Medical History Additional Past Medical History / Comment(s): kidney stones, History of Any Multi-Drug Resistant Organisms: None Reported Past Surgical History: Adenoidectomy, Cholecystectomy, Tonsillectomy Past Anesthesia/Blood Transfusion Reactions: No Reported Reaction Past Psychological History: No Psychological Hx Reported Smoking Status: Never smoker Past Alcohol Use History: None Reported Past Drug Use History: None Reported Medications and Allergies Home Medications Medication Instructions Recorded Confirmed Type Omeprazole 20 mg PO DAILY 12/11/21 02/12/23 History Vit No.179/Iron/Folic 1 each PO DAILY 12/11/21 02/12/23 History [ Tablet] Magnesium 1 tab PO DAILY 02/12/23 02/12/23 History cefUROXime axetiL [Ceftin] 500 mg PO BID 10 Days #20 tab 02/13/23 Rx Allergies Allergy/AdvReac Type Severity Reaction Status Date / Time amoxicillin AdvReac Rash/Hives Verified 03/08/22 23:26 Physical Exam Vitals: Vital Signs Temp Pulse Resp BP Pulse Ox 02/12/23 08:00 97.5 F L 85 15 110/61 99 02/12/23 03:23 97.9 F 88 16 108/73 98 12/28/23 02:07 98.1 F 93 16 117/73 98 Intake and Output 02/11/23 02/12/23 02/12/23 22:59 06:59 14:59 Other: # Voids 3 Weight 87.09 kg GENERAL DESCRIPTION: Middle-aged female lying in bed, no distress. No tachypnea or accessory muscle of respiration use. HEENT: Shows Pallor , no scleral icterus. Oral mucous membrane is dry. No pharyngeal erythema or thrush NECK: Trachea central, no thyromegaly. LUNGS: Unlabored breathing. Decreased breath sound at the base HEART: S1, S2, regular rate and rhythm. No loud murmur ABDOMEN: Soft, no tenderness , guarding or rigidity, no organomegaly EXTREMITIES: No edema of feet. SKIN: No rash, no masses palpable. NEUROLOGICAL: The patient is awake, alert, oriented x3, mood and affect normal. Results CBC & Chem 7: 02/13/23 06:55 02/13/23 06:55 Labs: Abnormal Lab Results - Last 24 Hours (Table) 02/12/23 02/12/23 Range/Units 02:15 03:30 WBC 15.5 H (3.8-10.6) k/uL Hgb 10.0 L (11.4-16.0) gm/dL Hct 30.9 L (34.0-46.0) % MCV 67.2 L (80.0-100.0) fL MCH 21.7 L (25.0-35.0) pg Neutrophils # 12.3 H (1.3-7.7) k/uL Urine Appearance Cloudy H (Clear) Urine Blood Trace H (Negative) Ur Leukocyte Esterase Large H (Negative) Urine WBC >182 H (0-5) /hpf Urine Bacteria Many H (None) /hpf Hyaline Casts 8 H (0-2) /lpf Assessment and Plan (1) Pyelonephritis affecting in third trimester Status: Acute Code(s): O23.03 - INFECTIONS OF KIDNEY IN , THIRD TRIMESTER SNOMED Code(s): 06916394657608 Plan: 1-patient is a 36 weeks and this patient presented to hospital with right flank pain has been diagnosed with a pyelonephritis did have significantly positive UA and elevated white count likely from enteric gram-negative pathogen 2-Rocephin 1 g daily to continue while waiting for the culture to finalize 3-we will repeat her CBC with a.m. labs and also check a CRP and BMP We will follow on clinical condition and cultures to further adjust medication if needed Thank you for this consultation we will follow the patient along with you Dictation was produced using [employer] dictation software. please excuse any gram matical, word or spelling errors. Time with Patient: Greater than 30
[2023-02-13] MEDS: LACTATED RINGERS 1,000 ML IV SCH ×2 (02:45→03:52)
[2023-02-13 07:17] LABS: Basophils % (A) 0 %; Eosinophils # (A) 0.1 k/uL (0-0.7); Eosinophils % (A) 1 %; HCT 28.3 % (34.0-46.0); HGB 9.1 gm/dL (11.4-16.0); Hypochromasia Moderate; Lymphocytes % (A) 18 %; MCH 21.6 pg (25.0-35.0); MCHC 32.1 g/dL (31.0-37.0); MCV 67.2 fL (80.0-100.0); Mean Platelet Volume 8.7; Microcytosis Marked; Monocytes # (A) 0.6 k/uL (0-1.0); Monocytes % (A) 5 %; Neutrophils # (A) 8.2 k/uL (1.3-7.7); Neutrophils % (A) 75 %; Platelet Count 185 k/uL (150-450); Poikilocytosis Slight; RDW 14.6 % (11.5-15.5)
[2023-02-13 07:49] LABS: African American GFR (CKD) >90 (>60 ml/min/1.73 sqM); Anion Gap 9 mmol/L; Blood Urea Nitrogen 5 mg/dL (7-17); C Reactive Protein 7.4 mg/dL (<1.0); Calcium 8.5 mg/dL (8.4-10.2); Carbon Dioxide 16 mmol/L (22-30); Chloride 108 mmol/L (98-107); Glucose 79 mg/dL (74-99); Non-African American GFR(CKD) >90 (>60 ml/min/1.73 sqM); Potassium 4.1 mmol/L (3.5-5.1); Sodium 133 mmol/L (137-145)
[2023-02-13 08:42] VITALS: BP 122/64; PULSE 83; RESP 17; TEMP 97.2
[2023-02-13] MEDS: ACETAMINOPHEN TAB 500 MG TAB PO PRN (09:31)
--- NOTE | 2023-02-13 11:33 | P.PN ---
Subjective Progress Note Date: 02/13/23 Principal diagnosis: Pyelonephritis Patient feels much better this morning. Flank pain has improved and is now just a dull aching rather than severe, sharp shooting pain. She is feeling good movement and has no obstetric concerns. She has been afebrile during her stay here. Objective - Vital Signs Vital signs: Vital Signs Temp 97.2 F L 02/13/23 08:32 Pulse 83 02/13/23 08:32 Resp 17 02/13/23 08:32 BP 122/64 02/13/23 08:32 Pulse Ox 98 02/13/23 08:32 FiO2 - Constitutional General appearance: Present: average body habitus, no acute distress - Gastrointestinal Gastrointestinal Comment(s): gravid, nontender - Musculoskeletal Musculoskeletal Comment(s): extremities non-edematous and non-tender - Psychiatric Psychiatric: Present: A&O x's 3, appropriate affect, intact judgment & insight - Labs CBC & Chem 7: 02/13/23 06:55 02/13/23 06:55 Labs: Abnormal Lab Results - Last 24 Hours (Table) 02/13/23 02/13/23 Range/Units 06:55 06:55 WBC 11.0 H (3.8-10.6) k/uL Hgb 9.1 L (11.4-16.0) gm/dL Hct 28.3 L (34.0-46.0) % MCV 67.2 L (80.0-100.0) fL MCH 21.6 L (25.0-35.0) pg Neutrophils # 8.2 H (1.3-7.7) k/uL Sodium 133 L (137-145) mmol/L Chloride 108 H (98-107) mmol/L Carbon Dioxide 16 L (22-30) mmol/L BUN 5 L (7-17) mg/dL Creatinine 0.51 L (0.52-1.04) mg/dL C-Reactive Protein 7.4 H (<1.0) mg/dL Assessment and Plan Assessment: 32 year old at 36 weeks and 5 days with pyelonephritis Plan: 1. Pyelonephritis. Rocephin 1 gram qDay ordered, s/p 2 doses. c/Infectious Disease. 2. 36 week gestation. NSTs qShift. Dispo: Appreciate recommendations from ID. Plan for transition to PO antibiotics after clinical improvement. Possible discharge home this evening or tomorrow morning. Time with Patient: Less than 30
--- NOTE | 2023-02-13 12:24 | P.DS ---
Providers Date of admission: 02/12/23 03:10 Expected date of discharge: 02/13/23 Attending physician: Lucina Washington MD Consults: 02/12/23 05:32 Consult Physician Routine Consulting Provider: Yvrose Key Consult Reason/Comments: Pyelonephritis in Do you want consulting provider notified?: Yes Placement Type Exists?: Yes Primary care physician: Stated None Hospital Course: Ms. Brand is a 32 year old at 36 weeks gestation who was hospitalized with pyelonephritis. She initially presented with right-sided flank pain described as severe, sharp, and shooting. She has never had a documented fever. She did have leukocytosis of 15.5 on admission. She was treated with 2 doses of IV Rocephin 1g q4h hours with improvement in clinical symptoms. Infectious disease has been consulted for antibiotic guidance. Unfortunately, urine culture was note sent at the time of admission. ID will plan to transition the patient to empiric oral antibiotics with follow up outpatient. The patient has no obstetric complaints and desires discharge home. She will follow up in the office next week with Dr. Chau. Assessment: 32 year old at 36 weeks with pyelonephritis Patient Condition at Discharge: Good Plan - Discharge Summary New Discharge Prescriptions: New cefUROXime axetiL [Ceftin] 500 mg PO BID 10 Days #20 tab No Action Omeprazole 20 mg PO DAILY Magnesium 1 tab PO DAILY Vit No.179/Iron/Folic [ Tablet] 1 each PO DAILY Discharge Medication List Omeprazole 20 mg PO DAILY 12/11/21 [History] Vit No.179/Iron/Folic [ Tablet] 1 each PO DAILY 12/11/21 [History] Magnesium 1 tab PO DAILY 02/12/23 [History] cefUROXime axetiL [Ceftin] 500 mg PO BID 10 Days #20 tab 02/13/23 [Rx] Follow up Appointment(s)/Referral(s): Mariano Chau MD [STAFF PHYSICIAN] - 1 Week Discharge Disposition: HOME SELF-CARE
--- NOTE | 2023-02-13 16:42 | P.PN ---
Subjective Progress Note Date: 02/13/23 Principal diagnosis: Reason for follow-up is right sided polynephritis Patient is a 32-year-old female which is currently 36 weeks presenting to the hospital with right flank pain patient symptoms started the day before presentation to the hospital, patient did have positive UA elevated white count concerning for right-sided pyelonephritis. On today's evaluation that is 02/13/2023, the patient denies having any fever or any chills, the patient right flank pain has decreased in intensity patient denies having any chest pain shortness of breath or cough no nausea no vomiting no abdominal pain or diarrhea. The patient white. 11,000 creatinine 0.51 Objective - Vital Signs Vital signs: Vital Signs Temp 97.2 F L 02/13/23 08:32 Pulse 83 02/13/23 08:32 Resp 17 02/13/23 08:32 BP 122/64 02/13/23 08:32 Pulse Ox 98 02/13/23 08:32 FiO2 - Exam Middle-age female lying in bed in no distress Unlabored breathing - Labs CBC & Chem 7: 02/13/23 06:55 02/13/23 06:55 Labs: Abnormal Lab Results - Last 24 Hours (Table) 02/13/23 02/13/23 Range/Units 06:55 06:55 WBC 11.0 H (3.8-10.6) k/uL Hgb 9.1 L (11.4-16.0) gm/dL Hct 28.3 L (34.0-46.0) % MCV 67.2 L (80.0-100.0) fL MCH 21.6 L (25.0-35.0) pg Neutrophils # 8.2 H (1.3-7.7) k/uL Sodium 133 L (137-145) mmol/L Chloride 108 H (98-107) mmol/L Carbon Dioxide 16 L (22-30) mmol/L BUN 5 L (7-17) mg/dL Creatinine 0.51 L (0.52-1.04) mg/dL C-Reactive Protein 7.4 H (<1.0) mg/dL Assessment and Plan (1) Pyelonephritis Status: Acute Code(s): N12 - TUBULO-INTERSTITIAL NEPHRITIS, NOT SPCF ACUTE OR CHRONIC SNOMED Code(s): 94252188 (2) Leukocytosis Status: Acute Code(s): D72.829 - ELEVATED WHITE BLOOD CELL COUNT, UNSPECIFIED SNOMED Code(s): 843703599 Plan: 1-patient is a 36 weeks and this patient presented to hospital with right flank pain has been diagnosed with a pyelonephritis did have significantly positive UA and elevated white count likely from enteric gram-negative pathogen 2patient has shown clinical improvement with the patient white count has came down unfortunately urine culture were not done we will switch her antibiotic therapy to oral Ceftin 500 mg twice a day for 10 days prescription sent to the pharmacy question concern answered Dictation was produced using [employer] dictation software. please excuse any grammatical, word or spelling errors. Time with Patient: Less than 30
== END 2023-02-13 13:13 | disposition home or self-care (01) | DRG 566 ==
LOC: FBPOP 02:04 → 4FBP 03:10 → OBSVTOIN 03:10
PROVIDERS: ADMIT Obstetrics & Gynecology; ATTEND Obstetrics & Gynecology
DX: O23.03 Infections of kidney in pregnancy, third trimester (principal); Z3A.36 36 weeks gestation of pregnancy; Z28.310 Unvaccinated for COVID-19; Z79.899 Other long term (current) drug therapy; Z87.440 Personal history of urinary (tract) infections; Z87.442 Personal history of urinary calculi; Z88.1 Allergy status to other antibiotic agents; Z88.0 Allergy status to penicillin
CPT/HCPCS: 59025; 80048; 81001; 85025; 86140; 99213

== ENCOUNTER 2023-02-26 10:52 | Outpatient (CLI) | payer OTHER ==
[2023-02-26 11:24] LABS: Basophils % (A) 0 %; Eosinophils # (A) 0.2 k/uL (0-0.7); Eosinophils % (A) 1 %; HCT 31.9 % (34.0-46.0); HGB 10.6 gm/dL (11.4-16.0); Hypochromasia Moderate; Lymphocytes # (A) 2.3 k/uL (1.0-4.8); Lymphocytes % (A) 18 %; MCH 21.8 pg (25.0-35.0); MCHC 33.3 g/dL (31.0-37.0); MCV 65.5 fL (80.0-100.0); Mean Platelet Volume 7.2; Microcytosis Marked; Monocytes # (A) 0.5 k/uL (0-1.0); Monocytes % (A) 4 %; Neutrophils # (A) 9.6 k/uL (1.3-7.7); Neutrophils % (A) 76 %; Platelet Count 212 k/uL (150-450); Poikilocytosis Slight; RBC 4.86 m/uL (3.80-5.40); RDW 14.1 % (11.5-15.5); WBC 12.7 k/uL (3.8-10.6)
[2023-02-26 11:26] LABS: Appearance,Urine Clear (Clear); Bacteria,Urine Occasional /hpf; Bilirubin,Urine Negative (Negative); Blood,Urine Negative (Negative); Color,Urine Colorless; Glucose,Urine (UA) Negative (Negative); Ketones,Urine Negative (Negative); Leukocyte Esterase,Urine Small (Negative); Mucus,Urine Rare /hpf; Nitrite,Urine Negative (Negative); Protein,Urine Negative (Negative); RBC,Urine <1 /hpf (0-5); Specific Gravity,Urine 1.008 (1.001-1.035); Squamous Epithelial Cell,Urine <1 /hpf (0-4); Urobilinogen,Urine <2.0 mg/dL (<2.0); WBC,Urine 5 /hpf (0-5)
[2023-02-26 11:40] LABS: Creatinine,Urine Random 55.6 mg/dL; Protein/Creatinine Ratio,Urine 0.18
[2023-02-26 11:41] LABS: ALT 11 U/L (4-34); AST 20 U/L (14-36); African American GFR (CKD) >90 (>60 ml/min/1.73 sqM); Blood Urea Nitrogen 3 mg/dL (7-17); Non-African American GFR(CKD) >90 (>60 ml/min/1.73 sqM); Uric Acid 5.4 mg/dL (3.7-7.4)
[2023-02-26 12:09] VITALS: BP 123/77; PULSE 87; RESP 18; TEMP 97.2
== END 2023-02-26 11:50 | disposition home or self-care (01) ==
LOC: FBPOP 10:52
PROVIDERS: ATTEND Obstetrics & Gynecology
DX: O13.3 Gestational [pregnancy-induced] hypertension without significant proteinuria, third trimester (principal); Z3A.38 38 weeks gestation of pregnancy; Z88.0 Allergy status to penicillin
CPT/HCPCS: 36415; 59025; 81001; 82565; 82570; 84156; 84450; 84460; 84520; 84550; 85025

== ENCOUNTER 2023-03-02 06:00 | Inpatient (IN) | payer OTHER ==
[2023-03-02] MEDS ORDERED: TRANEXAMIC 1,000 MG/100ML-NACL 1,000 MG in EMPTY BAG 1 BAG IV PRN (06:22)
[2023-03-02] MEDS ORDERED: METHYLERGONOVINE 0.2 MG/ML 1 ML AMP IM PRN (06:22)
[2023-03-02] MEDS ORDERED: CARBOPROST TROMETHAMINE 250 MCG/ML 1 ML AMP IM PRN (06:22)
[2023-03-02] MEDS ORDERED: LIDOCAINE 0.5% (PF) 5 MG/ML (50 ML SDV) SQ PRN (06:22)
[2023-03-02] MEDS ORDERED: TERBUTALINE 1 MG/ML VIAL SQ PRN (06:22)
[2023-03-02] MEDS ORDERED: OXYTOCIN 10 UNIT/ML 1 ML VIAL IM PRN (06:22)
[2023-03-02] MEDS ORDERED: miSOPROStoL 200 MCG TAB PO PRN (06:22)
[2023-03-02 06:32] LABS: HCT 34.3 % (34.0-46.0); MCH 21.1 pg (25.0-35.0); MCHC 32.1 g/dL (31.0-37.0); MCV 65.6 fL (80.0-100.0); RBC 5.23 m/uL (3.80-5.40); RDW 14.9 % (11.5-15.5); WBC 12.1 k/uL (3.8-10.6)
[2023-03-02 06:33] LABS: Basophils # (A) 0.1 k/uL (0-0.2); Basophils % (A) 0 %; Eosinophils # (A) 0.2 k/uL (0-0.7); Eosinophils % (A) 1 %; Hypochromasia Moderate; Lymphocytes # (A) 2.9 k/uL (1.0-4.8); Lymphocytes % (A) 24 %; Mean Platelet Volume 7.1; Microcytosis Marked; Monocytes # (A) 0.6 k/uL (0-1.0); Monocytes % (A) 5 %; Neutrophils # (A) 8.3 k/uL (1.3-7.7); Neutrophils % (A) 69 %; Platelet Count 228 k/uL (150-450); Poikilocytosis Slight
[2023-03-02] MEDS: LACTATED RINGERS 1,000 ML IV SCH ×3 (06:41→11:47)
[2023-03-02] MEDS ORDERED: OXYTOCIN 30 UNITS/500 ML NS 30 UNIT in SALINE 1 500ML.BAG IV SCH (06:45)
[2023-03-02] MEDS ORDERED: fentaNYL (PF) 50 MCG/ML 5 ML AMP ONE (10:29)
[2023-03-02] MEDS ORDERED: SODIUM CHLORIDE 0.9% 250 ML BAG ONE (10:29)
[2023-03-02] MEDS ORDERED: ROPIVACAINE 5 MG/ML 30 ML VIAL ONE (10:29)
--- NOTE | 2023-03-02 11:00 | P.HPOB ---
History of Present Illness H&P Date: 03/02/23 Chief Complaint: 39+ weeks, elective induction The patient is a 32-year-old 4 para 3003 admitted at 39+ weeks as established by last menstrual period and confirmed by 10 week ultrasound. She is admitted for elective induction of labor with all signs reassuring, category 1 heart rate tracing. Her has been essentially uncomplicated though she did have an episode of pyelonephritis in the third trimester which was treated and cured. She is known to be Rh- and received RhoGAM at 28 weeks. Group B strep status is negative. Obstetrical history: 4 para 3003 with 3 term vaginal deliveries without complications. EDC of 03/07/2023 was established by last menstrual period and confirmed by 10 week ultrasound. Laboratory workup is not available and the current record though she is known to be Rh- and rubella status is immune. Group B strep status is negative. Gynecologic history: Unremarkable with no history of any infections to include STDs. Review of Systems Review of systems is confined to history of present illness. Past Medical History Additional Past Medical History / Comment(s): kidney stones, History of Any Multi-Drug Resistant Organisms: None Reported Past Surgical History: Adenoidectomy, Cholecystectomy, Tonsillectomy Past Anesthesia/Blood Transfusion Reactions: No Reported Reaction Past Psychological History: No Psychological Hx Reported Smoking Status: Never smoker Past Alcohol Use History: None Reported Past Drug Use History: None Reported Medications and Allergies Home Medications Medication Instructions Recorded Confirmed Type Vit No.179/Iron/Folic 1 each PO DAILY 12/11/21 03/02/23 History [ Tablet] RX: Omeprazole 20 mg PO DAILY 12/11/21 03/02/23 History RX: Magnesium 1 tab PO DAILY 02/12/23 03/02/23 History Allergies Allergy/AdvReac Type Severity Reaction Status Date / Time amoxicillin AdvReac Rash/Hives Verified 03/02/23 06:20 Exam Vital Signs Temp Pulse Resp BP 03/02/23 06:28 97.7 F 92 18 117/78 Intake and Output 03/01/23 03/02/23 03/02/23 22:59 06:59 14:59 Other: Weight 87.09 kg In general, this is a well-developed, well-nourished white female in no acute distress. Her heart has a regular rhythm and rate without murmur. Her lungs are clear to auscultation bilaterally in all hayes. Her abdomen is gravid, nondistended, has normal active bowel sounds, soft, nontender, and without any palpable masses aside from uterine fundus. Her extremities are without any cyanosis, clubbing, or edema and are nontender to palpation bilaterally. Digital cervical examination demonstrates her cervix to be 2+ centimeters dilated, 50% effaced, with the vertex in presentation at -3 station. Artificial rupture of membranes is carried out demonstrating clear fluid. Results Result Diagrams: 03/02/23 06:23 Abnormal Lab Results - Last 24 Hours (Table) 03/02/23 Range/Units 06:23 WBC 12.1 H (3.8-10.6) k/uL Hgb 11.0 L (11.4-16.0) gm/dL MCV 65.6 L (80.0-100.0) fL MCH 21.1 L (25.0-35.0) pg Neutrophils # 8.3 H (1.3-7.7) k/uL Assessment and Plan (1) Term Current Visit: Yes Status: Acute Code(s): Z34.90 - ENCNTR FOR SUPRVSN OF NORMAL , UNSP, UNSP TRIMESTER SNOMED Code(s): 94726094 Plan: The patient is admitted for elective induction. Pitocin augmentation has been started and she has undergone artificial rupture of membranes. She will have c lose maternal and surveillance and expectant management will be practiced. She is a good candidate for either IV or epidural or nitrous analgesia, whichever she may choose.
[2023-03-02] MEDS ORDERED: NALBUPHINE 10 MG/ML (10 ML MDV) IV PRN (11:01)
[2023-03-02] MEDS ORDERED: Rhogam IMMUNE GLOBULIN 1,500 UNIT/1 ML IM ONE (13:02)
[2023-03-02] MEDS ORDERED: SIMETHICONE 80 MG CHEWABLE PO PRN (13:02)
[2023-03-02] MEDS ORDERED: HYDROCORTISONE 2.5% RECTAL CREAM 30 GM TUBE RECTAL PRN (13:02)
[2023-03-02] MEDS ORDERED: diphenhydrAMINE 50 MG CAP PO PRN (13:02)
[2023-03-02] MEDS ORDERED: diphenhydrAMINE 50 MG/ML 1 ML VIAL IVP PRN ×2 (13:02)
[2023-03-02] MEDS ORDERED: diphenhydrAMINE 25 MG CAP PO PRN (13:02)
[2023-03-02] MEDS ORDERED: LANOLIN CREAM 5 GM TUBE TOPICAL PRN (13:02)
[2023-03-02] MEDS ORDERED: BENZOCAINE/MENTHOL SPRAY 1 GM/SPRAY AEROSOL TOPICAL PRN (13:02)
[2023-03-02] MEDS ORDERED: ZOLPIDEM 5 MG TAB PO PRN (13:02)
--- NOTE | 2023-03-02 13:02 | P.PROBDLV ---
Vaginal Delivery Note - . Vaginal Delivery Note: DATE OF SERVICE: 03/02/2023 PROCEDURE: Normal Vaginal Delivery ATTENDING: Dr. Lucina Washington MD ESTIMATED BLOOD LOSS: 200 mL FINDINGS: VMI, Apgars 9/9. Weight 7 pounds and 0 ounces (3175 grams) PROCEDURE: Ms. Brand is a 32 year old at 39 weeks presenting to labor and delivery for elective induction of labor. The has been complicated by recurrent UTI and pyelonephritis. For further details, please review the admitting H&P. Pitocin was titrated per protocol. AROM was undertaken at 837 revealing clear amniotic fluid. The patient received epidural anesthesia per her request. The patient was completely dilated at 1216. A viable male was delivered at 1237. The was placed on the maternal abdomen and bulb suctioned. The was noted to be spontaneously crying. Cord was clamped and cut after a 30-second delay. The infant was handed off to the pediatric team. Placenta was delivered whole with gentle cord traction at 1241. Oxytocin was started to facilitate uterine tone. Uterine fundus was found to be firm and below the umbilicus upon fundal massage. Thorough examination of the cervix, vagina, periurethral area, and perineum revealed a small second degree perineal laceration that was repaired with 2-0 Vicryl in the usual fashion. The patient is stable and allowed to begin the bonding process.
[2023-03-02 13:12] VITALS: RESP 16
[2023-03-02] MEDS: IBUPROFEN 600 MG TAB PO PRN ×2 (13:14→19:48)
[2023-03-02] MEDS: SENNOSIDES-DOCUSATE SODIUM 1 EACH TAB PO SCH (20:36)
[2023-03-02] MEDS: ACETAMINOPHEN TAB 325 MG TAB PO PRN (23:20)
[2023-03-03] MEDS: IBUPROFEN 600 MG TAB PO PRN ×3 (04:30→20:00)
[2023-03-03 07:33] LABS: Basophils # (A) 0.1 k/uL (0-0.2); Basophils % (A) 0 %; Eosinophils # (A) 0.1 k/uL (0-0.7); Eosinophils % (A) 1 %; HCT 28.4 % (34.0-46.0); Hypochromasia Marked; Lymphocytes # (A) 2.6 k/uL (1.0-4.8); Lymphocytes % (A) 20 %; MCH 21.2 pg (25.0-35.0); MCHC 31.7 g/dL (31.0-37.0); MCV 66.9 fL (80.0-100.0); Mean Platelet Volume 7.6; Microcytosis Marked; Monocytes # (A) 0.5 k/uL (0-1.0); Monocytes % (A) 4 %; Neutrophils # (A) 9.5 k/uL (1.3-7.7); Neutrophils % (A) 73 %; Platelet Count 164 k/uL (150-450); Poikilocytosis Slight; RBC 4.24 m/uL (3.80-5.40); RDW 14.9 % (11.5-15.5)
--- NOTE | 2023-03-03 08:37 | P.PNOBGVD ---
Subjective - Subjective Patient reports: Reports appetite normal, Reports voiding normally, Reports pain well controlled, Reports ambulating normally : doing well, nursing well Objective - Latest Vital Signs Latest vital signs: Vital Signs Temp Pulse Resp BP 03/02/23 23:33 97.8 F 79 16 120/78 03/02/23 20:00 97.6 F 77 16 132/90 03/02/23 15:30 81 16 108/78 03/02/23 14:15 71 16 115/80 03/02/23 13:45 69 16 116/72 03/02/23 13:30 71 16 127/69 03/02/23 13:15 76 16 127/70 03/02/23 13:00 82 16 123/67 03/02/23 12:45 88 16 130/70 Intake and Output 03/02/23 03/03/23 03/03/23 22:59 06:59 14:59 Output Total 125 Balance -125 Output: Output, Quantitative 125 Blood Loss Other: # Voids 1 1 - Exam Extremities: Present: normal Abdomen: Present: normal appearance, soft Uterus: Present: normal, firm (The uterine fundus is tonic and nontender at the umbilicus.) - Labs Labs: Abnormal Lab Results - Last 24 Hours (Table) 03/03/23 Range/Units 06:31 WBC 13.0 H (3.8-10.6) k/uL Hgb 9.0 L D (11.4-16.0) gm/dL Hct 28.4 L (34.0-46.0) % MCV 66.9 L (80.0-100.0) fL MCH 21.2 L (25.0-35.0) pg Neutrophils # 9.5 H (1.3-7.7) k/uL Assessment and Plan (1) Term Current Visit: Yes Status: Acute Code(s): Z34.90 - ENCNTR FOR SUPRVSN OF NORMAL , UNSP, UNSP TRIMESTER SNOMED Code(s): 66704752 (2) Normal spontaneous vaginal delivery Current Visit: Yes Status: Acute Code(s): O80 - ENCOUNTER FOR FULL-TERM UNCOMPLICATED DELIVERY SNOMED Code(s): 20647978 Plan: The patient has elected to stay for a second day. We will continue routine care and anticipate discharge home tomorrow pending no complications.
[2023-03-03] MEDS: ACETAMINOPHEN TAB 325 MG TAB PO PRN ×3 (09:24→23:50)
[2023-03-03] MEDS: SENNOSIDES-DOCUSATE SODIUM 1 EACH TAB PO SCH ×2 (10:03→20:00)
[2023-03-04] MEDS: IBUPROFEN 600 MG TAB PO PRN (03:05)
[2023-03-04 07:57] VITALS: BP 123/81; PULSE 84; TEMP 98.3
--- NOTE | 2023-03-04 08:24 | P.DS ---
Providers Date of admission: 03/02/23 06:16 Expected date of discharge: 03/04/23 Attending physician: Mariano Chau Primary care physician: Stated None - Discharge Diagnosis(es) (1) Term Current Visit: Yes Status: Acute (2) Normal spontaneous vaginal delivery Current Visit: Yes Status: Acute Hospital Course: The patient is a 32-year-old 4 para 3003 admitted at 39+ weeks by good dating parameters for an elective induction. Her has been uncomplicated though she did have an episode of pyelonephritis requiring hospitalization and antibiotic therapy which resolved. She is Rh- and received RhoGAM at 28 weeks. Group B strep status is negative. On labor and delivery, she had Pitocin started followed by artificial rupture of membranes for clear fluid. She made progress in the active phase and had an epidural catheter placed for analgesia. She then progressed to complete and pushed to a normal spontaneous vaginal delivery of a viable 7 lbs. 0 oz. baby boy with Apgars of 9 at 1 minute and 9 at 5 it's. Her course was unremarkable with vital signs remaining stable and her temperature was afebrile throughout. She was deemed stable for discharge on day #2 and was discharged home to follow-up in the office in 6 weeks' time routinely. Discharge instructions included calling for any significantly increased bleeding or foul-smelling lochia, significantly increased fever abdominal pain, perineal complaints, breast complaints, or anything also concerned her. She is additionally instructed to have nothing in the vagina for at least 6 weeks time to include intercourse. She understood her instructions and agrees follow up as noted above. Discharge medications included continued vitamins as she has opted to breast-feed. She was otherwise to use [id number] analgesic pain medications as needed. Maternal blood type is Rh negative and rubella status is immune. She was to receive RhoGAM prior to discharge. Procedures: #1. Pitocin induction over 2. Artificial rupture of membranes #3. Epidural analgesia 4. Normal spontaneous vaginal delivery #5. Repair of perineal laceration Patient Condition at Discharge: Stable Plan - Discharge Summary New Discharge Prescriptions: No Action Omeprazole 20 mg PO DAILY Magnesium 1 tab PO DAILY Vit No.179/Iron/Folic [ Tablet] 1 each PO DAILY Discharge Medication List Omeprazole 20 mg PO DAILY 12/11/21 [History] Vit No.179/Iron/Folic [ Tablet] 1 each PO DAILY 12/11/21 [History] Magnesium 1 tab PO DAILY 02/12/23 [History] Follow up Appointment(s)/Referral(s): Mariano Chau MD [STAFF PHYSICIAN] - 6 Weeks Discharge Disposition: HOME SELF-CARE
[2023-03-04] MEDS: ACETAMINOPHEN TAB 325 MG TAB PO PRN (08:29)
[2023-03-04] MEDS: SENNOSIDES-DOCUSATE SODIUM 1 EACH TAB PO SCH (08:40)
== END 2023-03-04 12:00 | disposition home or self-care (01) | DRG 560 ==
LOC: 4FBP 06:16
PROVIDERS: ADMIT Obstetrics & Gynecology; ATTEND Obstetrics & Gynecology
PROC: 0KQM0ZZ Repair Perineum Muscle, Open Approach (ICD-10-PCS; principal; 2023-03-02)
PROC: 3E0234Z Introduction of Serum, Toxoid and Vaccine into Muscle, Percutaneous Approach (ICD-10-PCS; principal; 2023-03-02)
PROC: 10907ZC Drainage of Amniotic Fluid, Therapeutic from Products of Conception, Via Natural or Artificial Opening (ICD-10-PCS; principal; 2023-03-02)
PROC: 3E033VJ Introduction of Other Hormone into Peripheral Vein, Percutaneous Approach (ICD-10-PCS; principal; 2023-03-02)
PROC: 10E0XZZ Delivery of Products of Conception, External Approach (ICD-10-PCS; principal; 2023-03-02)
DX: O23.03 Infections of kidney in pregnancy, third trimester (principal); N12 Tubulo-interstitial nephritis, not specified as acute or chronic; O70.1 Second degree perineal laceration during delivery; Z37.0 Single live birth; Z3A.39 39 weeks gestation of pregnancy; Z87.440 Personal history of urinary (tract) infections; Z87.442 Personal history of urinary calculi; Z88.1 Allergy status to other antibiotic agents; Z90.49 Acquired absence of other specified parts of digestive tract; O26.893 Other specified pregnancy related conditions, third trimester; Z67.41 Type O blood, Rh negative
CPT/HCPCS: 85025; 85461; 86850; 86900; 86901